=== PATIENT | male | born 1935 | race Caucasian/White ===

== ENCOUNTER 2016-08-13 09:39 | Day surgery (SDC) | payer MEDICARE, BC ==
[~2016-08-13 09:39] MED LIST: Lactated Ringers 1,000 ML IV SCH; Lidocaine 1%/Sod Bicarbonate in NS 8.4% 1 ML Syringe IV PRN; Sodium Chloride 0.9% 10 ML Syringe FLUSH PRN
--- NOTE | 2016-08-13 10:24 | PCM.PREANE ---
Preanesthetic Assessment - Physical Assessment NPO Status Date: 08/12/16 NPO Status Time: 21:00 O2 Sat by Pulse Oximetry: 98 Respiratory Rate: 20 Vital Signs: Last Vital Signs Temp 36.7 C 08/13/16 09:45 Pulse 65 08/13/16 09:45 Resp 20 08/13/16 09:45 BP 154/76 H 08/13/16 09:45 Pulse Ox 98 08/13/16 09:45 Height: 1.78 m Weight: 88.451 kg - Allergies Allergies/Adverse Reactions: Allergies Allergy/AdvReac Type Severity Reaction Status Date / Time Gadolinium-Containing Allergy Other Verified 08/12/16 14:30 Contrast Medi PreAnesthesia Questionnaire HEENT History: Reports: Impaired vision, Macular degeneration, Other (see below) Other HEENT History: has glasses, partial Cardiovascular History: Reports: High cholesterol, Hypertension Respiratory History: Reports: None Gastrointestinal History: Reports: Other (see below) Other Gastrointestinal History: dysphagia Genitourinary History: Reports: Other (see below) Other Genitourinary History: abnormal PSA 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 Musculoskeletal History: Reports: Other (see below) Other Musculoskeletal History: polymyalgia Neurological History: Reports: None Psychiatric History: Reports: None Endocrine/Metabolic History: Reports: None Hematologic History: Reports: None Immunologic History: Reports: None Oncologic (Cancer) History: Reports: Prostate Dermatologic History: Reports: None - Past Surgical History Head Surgeries/Procedures: Reports: None GI Surgical History: Reports: Appendectomy, Colonoscopy Musculoskeletal Surgical History: Reports: Other (see below) Other Musculoskeletal Surgeries/Procedures:: knee surgery, broken leg - SUBSTANCE USE Tobacco Use Within Last Twelve Months: Snuff/Dip Second Hand Smoke Exposure: No Recreational Drug Use History: No - HOME MEDS Home Medications: Home Meds Gluc HCl/Csa/Yahir Hy/Hyalur Ac [Glucosamine Chondroitin] 1 cap PO DAILY [History] Lutein/Minerals/Vit A,C & E [Ocuvite] 1 tab PO DAILY 08/12/16 [History] Metoprolol Succinate 50 mg PO DAILY 08/12/16 [History] Ranitidine HCl [Zantac] 150 mg PO DAILY 08/12/16 [History] atorvaSTATin [Lipitor] 20 mg PO DAILY 08/12/16 [History] - CURRENT (IN HOUSE) MEDS Current Meds: Current Medications Lactated Ringer's (Ringers, Lactated) 1,000 mls @ 125 mls/hr IV ASDIRECTED YESSENIA Stop: 08/13/16 23:00 Last Admin: 08/13/16 10:05 Dose: 125 mls/hr Lidocaine/Sodium Bicarbonate (Buffered Lidocaine 1% In Ns 8.4%) 0.25 ml IV ONETIME PRN PRN Reason: Prior to IV Start Stop: 08/13/16 18:00 Last Admin: 08/13/16 10:05 Dose: 0.25 ml Sodium Chloride (Saline Flush) 10 ml FLUSH ASDIRECTED PRN PRN Reason: Keep Vein Open Stop: 08/13/16 18:00 Preanesthetic Assessment - ANESTHESIA/TRANSFUSION/FAMILY HX Anesthesia/Transfusion History: No Prior Transfusion(s), Prior Anesthesia Family History of Anesthesia Reaction: No Intubation History: Unknown Type of Transfusion Reactions: Reports: Unknown Additional History: Patient did have some chest tightness for the past 6 nights. He went to the ER in [place] yesterday becasue he was told he shold have it checked out. Troponin 0.03, CKMB 1.4, lipid panel, cbc, chem 14 unremarkable, EKG showed SB 57. 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 Respiratory: Reports: cough Cardiovascular: Reports: no symptoms, blood pressure problem GI: Reports: no symptoms (GERD) - PHYSICAL ASSESSMENT O2 Sat by Pulse Oximetry: 98 RR: 20 Vital Signs: Last Vital Signs Temp 36.7 C 08/13/16 09:45 Pulse 65 08/13/16 09:45 Resp 20 08/13/16 09:45 BP 154/76 H 08/13/16 09:45 Pulse Ox 98 08/13/16 09:45 Height: 1.78 m Weight: 88.451 kg NPO Status Date: 08/12/16 NPO Status Time: 21:00 ASA Class: 2 Mental Status: Alert & Oriented x3 Airway Class: Mallampati = 1 Dentition: Reports: Dentures (upper ) Thyro-Mental Finger Breadths: 3 Mouth Opening Finger Breadths: 3 ROM/Head Extension: Full Respiratory Status: lungs clear to auscultation bilaterally Cardiovascular Status: regular rate & rhythm, normal S1, S2, no murmur, blood pressure WNL - ALLERGIES Allergies/Adverse Reactions: Allergies Allergy/AdvReac Type Severity Reaction Status Date / Time Gadolinium-Containing Allergy Other Verified 08/12/16 14:30 Contrast Medi - BLOOD Blood Available: No Product(s) Available: None - ANESTHESIA PLAN Preop Beta Daysi: Yes Beta Daysi: Metoprolol Beta-Daysi Last Dose Date: 08/12/16 Beta-Daysi Last Dose Time: 07:00 Anesthesia Type Planned: MAC - ACKNOWLEDGEMENTS Pt an Appropriate Candidate for the Planned Anesthesia: Yes Alternatives and Risks of Anesthesia Discussed w Pt/Guardian: Yes Pt/Guardian Understands and Agrees with Anesthesia Plan: Yes
[2016-08-13] MEDS ORDERED: Propofol 200 MG/20 ML SDV ONE (10:33)
[2016-08-13] MEDS ORDERED: Lidocaine 1% 4 ML ONE (10:34)
--- NOTE | 2016-08-13 11:03 | PCM.OPNOTE ---
- General Post-Op/Procedure Note Date of Surgery/Procedure: 08/13/16 Operative Procedure(s): EGD with proximal esophageal and GE junction biopsies Findings: sliding hiatal hernia about 6 cm mild duodenitits Pre Op Diagnosis: dysphagia Post-Op Diagnosis: 1. moderate size sliding hiatal hernia. 2. mild duodenitis Anesthesia Technique: MAC, Moderate sedation Primary Surgeon: Ron Smith Pathology: proximal esophageal and GE junction. Biopsies x2 using cold forceps EBL in mLs: 0 Complications: None Condition: Good Free Text/Narrative:: After adequate IV sedation and analgesia was obtained the patient was placed on his left side. Through a bite block a lubricated upper endoscope was inserted into the esophagus and advanced to the GE junction without difficulty. The scope into the stomach where air was given. There was mild inflammation of the duodenum with no romeo erosions or ulcerations. The antrum was unremarkable. The body of the stomach was grossly normal. In the retroflexed view I could see a sliding hiatal hernia. The fundus, and was normal. The GE junction was about 6 cm above the diaphragmatic crura. The pouch of the hernia was grossly normal. Random biopsies were taken of the GE junction for review. The body of the esophagus was otherwise endoscopically normal but because of his history of dysphagia I took 2 forceps biopsies of the proximal esophagus for histologic evaluation. Photographs taken for the patient and for the record. Air was removed, as I finished the procedure, which he tolerated well.
--- NOTE | 2016-08-13 11:07 | PCM48HPAN ---
Post Anesthesia Note - EVALUATION WITHIN 48HRS OF ANESTHETIC Vital Signs in Normal Range: Yes Patient Participated in Evaluation: Yes Respiratory Function Stable: Yes Airway Patent: Yes Cardiovascular Function Stable: Yes Hydration Status Stable: Yes Pain Control Satisfactory: Yes Nausea and Vomiting Control Satisfactory: Yes Mental Status Recovered: Yes
[2016-08-13 11:12] VITALS: BP 132/67
== END 2016-08-13 11:30 | disposition home or self-care (01) ==
LOC: JD.SDS 09:39
PROVIDERS: ATTEND Surgery
DX: K29.50 Unspecified chronic gastritis without bleeding (principal); K21.0 Gastro-esophageal reflux disease with esophagitis; Z88.8 Allergy status to other drugs, medicaments and biological substances; K44.9 Diaphragmatic hernia without obstruction or gangrene; K21.9 Gastro-esophageal reflux disease without esophagitis; I10 Essential (primary) hypertension; E78.5 Hyperlipidemia, unspecified; Z68.31 Body mass index [BMI] 31.0-31.9, adult; E78.00 Pure hypercholesterolemia, unspecified; Z79.899 Other long term (current) drug therapy; Z90.49 Acquired absence of other specified parts of digestive tract; Z98.890 Other specified postprocedural states
CPT/HCPCS: 43239; 88305; J7120; J2704

== ENCOUNTER 2017-01-26 14:18 | Emergency (ER) | payer MEDICARE, BC ==
[2017-01-26] MEDS ORDERED: Sodium Chloride 0.9% 10 ML Syringe FLUSH PRN (15:05)
[2017-01-26] MEDS ORDERED: Metoprolol Tartrate 5 MG in Sodium Chloride 0.9% 50 ML IV ONE ×2 (15:25→15:55)
[2017-01-26] MEDS ORDERED: Sodium Chloride 0.9% 500 ML IV ONE (15:27)
--- NOTE | 2017-01-26 15:27 | EDM.PDOC ---
ED HPI GENERAL MEDICAL PROBLEM - General Chief Complaint: Cardiovascular Problem Stated Complaint: HIGH HEART RATE Time Seen by Provider: 01/26/17 14:33 Source of Information: Reports: Patient, RN Notes Reviewed, Other (Record of prior visit has been sent from [facility] and has been reviewed) - History of Present Illness INITIAL COMMENTS - FREE TEXT/NARRATIVE: 81-year-old gentleman has been having some palpitations of his chest off and on for the past week or so. This was more intense and longer lasting this morning so he did present to the [facility]. He was noted to be in atrial fibrillation with RVR. Or for has been transferred here for further evaluation. She has felt some "pressure in his head". No chest pain or difficulty breathing. Mild dizziness when standing and walking. No nausea vomiting or diaphoresis. He does have history of hypertension. He has history of GERD and hyperlipidemia. He is not diabetic. Headache Pain Score (Numeric/FACES): 6 - Related Data Allergies Allergy/AdvReac Type Severity Reaction Status Date / Time Gadolinium-Containing Allergy Other Verified 01/26/17 15:06 Contrast Medi Home Meds: Home Meds Gluc HCl/Csa/Yahir Hy/Hyalur Ac [Glucosamine Chondroitin] 1 cap PO DAILY [History] Lutein/Minerals/Vit A,C & E [Ocuvite] 1 tab PO DAILY 08/12/16 [History] Metoprolol Succinate 50 mg PO DAILY 08/12/16 [History] Ranitidine HCl [Zantac] 150 mg PO DAILY 08/12/16 [History] atorvaSTATin [Lipitor] 20 mg PO DAILY 08/12/16 [History] Omeprazole 20 mg PO DAILY 01/26/17 [History] Past Medical History HEENT History: Reports: Impaired Vision, Macular Degeneration, Other (See Below) Other HEENT History: has glasses, partial Cardiovascular History: Reports: High Cholesterol, Hypertension Respiratory History: Reports: None Gastrointestinal History: Reports: Other (See Below) Other Gastrointestinal History: dysphagia Genitourinary History: Reports: Other (See Below) Other Genitourinary History: abnormal PSA 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 Musculoskeletal History: Reports: Other (See Below) Other Musculoskeletal History: polymyalgia Neurological History: Reports: None Psychiatric History: Reports: None Endocrine/Metabolic History: Reports: None Hematologic History: Reports: None Immunologic History: Reports: None Oncologic (Cancer) History: Reports: Prostate Dermatologic History: Reports: None - Past Surgical History Head Surgeries/Procedures: Reports: None Musculoskeletal Surgical History: Reports: Other (See Below) Social & Family History - Tobacco Use Smoking Status *Q: Current Every Day Smoker Years of Tobacco use: 40 Packs/Tins Daily: 0.2 Second Hand Smoke Exposure: No - Caffeine Use Caffeine Use: Reports: Coffee - Recreational Drug Use Recreational Drug Use: No Drug Use in Last 12 Months: No - Living Situation & Occupation Occupation: Other ED ROS GENERAL - Review of Systems Review Of Systems: See Below Constitutional: Denies: Fever, Chills, Diaphoresis HEENT: Reports: No Symptoms Respiratory: Denies: Shortness of Breath, Pleuritic Chest Pain, Cough Cardiovascular: Reports: Palpitations. Denies: Chest Pain GI/Abdominal: Denies: Abdominal Pain, Nausea, Vomiting Musculoskeletal: Denies: Shoulder Pain, Arm Pain, Leg Pain Skin: Reports: No Symptoms Neurological: Reports: No Symptoms ED EXAM, GENERAL - Physical Exam Exam: See Below General Appearance: Alert, No Apparent Distress Throat/Mouth: Normal Inspection, Normal Oropharynx Head: Atraumatic. No: Facial Swelling Neck: Supple, Full Range of Motion Respiratory/Chest: No Respiratory Distress, Lungs Clear, Normal Breath Sounds Cardiovascular: Tachycardia, Irregularly Irregular GI/Abdominal: Soft, Non-Tender Extremities: No: Pedal Edema, Leg Pain, Increased Warmth, Redness Neurological: Alert, Oriented, No Motor/Sensory Deficits Skin Exam: Warm, Dry, Normal Color EKG INTERPRETATION EKG Date: 01/26/17 Rhythm: A-Fib Rate (Beats/Min): 107 Soso: Normal QRS: Normal ST-T: Normal Course - Vital Signs Last Recorded V/S: Last Vital Signs Temp 97.8 F 01/26/17 15:03 Pulse 88 01/26/17 16:22 Resp 16 01/26/17 15:03 BP 120/83 01/26/17 16:22 Pulse Ox 96 01/26/17 15:03 - Orders/Labs/Meds Orders: Active Orders 24 hr Category Date Time Status EKG 12 Lead [EKG Documentation Completion] [RC] STAT Care 01/26/17 15:05 Active Peripheral IV Care [RC] . DIRECTED Care 01/26/17 15:06 Active Chest 1V Frontal [CR] Stat Exams 01/26/17 15:05 Taken Sodium Chloride 0.9% [Saline Flush] Med 01/26/17 15:05 Active 10 ml FLUSH ASDIRECTED PRN Peripheral IV Insertion Pediatric [OM.PC] Routine Oth 01/26/17 15:06 Ordered Medication Orders Sodium Chloride (Saline Flush) 10 ml FLUSH ASDIRECTED PRN PRN Reason: Keep Vein Open Last Admin: 01/26/17 15:42 Dose: 10 ml Labs: Laboratory Tests 01/26/17 01/26/17 01/26/17 Range/Units 15:10 15:10 15:10 WBC 8.22 (4.23-9.07) K/mm3 RBC 5.02 (4.63-6.08) M/mm3 Hgb 14.1 (13.7-17.5) gm/L Hct 42.5 (40.1-51.0) % MCV 84.7 (79.0-92.2) fl MCH 28.1 (25.7-32.2) pg MCHC 33.2 (32.2-35.5) g/dl RDW Std Deviation 41.9 (35.1-43.9) fL Plt Count 237 (163-337) K/mm3 MPV 10.5 (9.4-12.3) fl Neut % (Auto) 61.3 (34.0-67.9) % Lymph % (Auto) 20.2 L (21.8-53.1) % [place] % (Auto) 15.6 H (5.3-12.2) % Eos % (Auto) 1.8 (0.8-7.0) Baso % (Auto) 0.9 (0.1-1.2) % Neut # (Auto) 5.04 (1.78-5.38) K/mm3 Lymph # (Auto) 1.66 (1.32-3.57) K/mm3 [place] # (Auto) 1.28 H (0.30-0.82) K/mm3 Eos # (Auto) 0.15 (0.04-0.54) K/mm3 Baso # (Auto) 0.07 (0.01-0.08) K/mm3 Manual Slide Review Normal smear PT 10.7 (8.0-13.0) SECONDS INR 0.98 APTT (22-36) SECONDS Sodium 139 (136-145) mEq/L Potassium 4.1 (3.5-5.1) mEq/L Chloride 106 (98-107) mEq/L Carbon Dioxide 27 (21-32) mEq/L Anion Gap 10.1 (5-15) BUN 21 H (7-18) mg/dL Creatinine 1.0 (0.7-1.3) mg/dL Est Cr Clr Drug Dosing 57.79 mL/min Estimated GFR (MDRD) > 60 (>60) mL/min BUN/Creatinine Ratio 21.0 H (14-18) Glucose 130 H (83-115) mg/dL Calcium 9.0 (8.5-10.1) mg/dL Total Bilirubin 0.3 (0.2-1.0) mg/dL AST 14 L (15-37) U/L ALT 22 (16-63) U/L Alkaline Phosphatase 122 H (46-116) U/L Troponin I < 0.017 (0.00-0.056) ng/mL Total Protein 6.9 (6.4-8.2) g/dl Albumin 3.3 L (3.4-5.0) g/dl Globulin 3.6 gm/dL Albumin/Globulin Ratio 0.9 L (1-2) 01/26/ Range/Units 15:10 WBC (4.23-9.07) K/mm3 RBC (4.63-6.08) M/mm3 Hgb (13.7-17.5) gm/L Hct (40.1-51.0) % MCV (79.0-92.2) fl MCH (25.7-32.2) pg MCHC (32.2-35.5) g/dl RDW Std Deviation (35.1-43.9) fL Plt Count (163-337) K/mm3 MPV (9.4-12.3) fl Neut % (Auto) (34.0-67.9) % Lymph % (Auto) (21.8-53.1) % [place] % (Auto) (5.3-12.2) % Eos % (Auto) (0.8-7.0) Baso % (Auto) (0.1-1.2) % Neut # (Auto) (1.78-5.38) K/mm3 Lymph # (Auto) (1.32-3.57) K/mm3 [place] # (Auto) (0.30-0.82) K/mm3 Eos # (Auto) (0.04-0.54) K/mm3 Baso # (Auto) (0.01-0.08) K/mm3 Manual Slide Review PT (8.0-13.0) SECONDS INR APTT 31 (22-36) SECONDS Sodium (136-145) mEq/L Potassium (3.5-5.1) mEq/L Chloride (98-107) mEq/L Carbon Dioxide (21-32) mEq/L Anion Gap (5-15) BUN (7-18) mg/dL Creatinine (0.7-1.3) mg/dL Est Cr Clr Drug Dosing mL/min Estimated GFR (MDRD) (>60) mL/min BUN/Creatinine Ratio (14-18) Glucose (83-115) mg/dL Calcium (8.5-10.1) mg/dL Total Bilirubin (0.2-1.0) mg/dL AST (15-37) U/L ALT (16-63) U/L Alkaline Phosphatase (46-116) U/L Troponin I (0.00-0.056) ng/mL Total Protein (6.4-8.2) g/dl Albumin (3.4-5.0) g/dl Globulin gm/dL Albumin/Globulin Ratio (1-2) Meds: Medications Generic Name Dose Route Start Last Admin Trade Name Freq PRN Reason Stop Dose Admin Sodium Chloride 10 ml 01/26/17 15:05 01/26/17 15:42 Saline Flush FLUSH 10 ml ASDIRECTED PRN Administration Keep Vein Open Discontinued Medications Generic Name Dose Route Start Last Admin Trade Name Freq PRN Reason Stop Dose Admin Aspirin 324 mg 01/26/17 16:25 Aspirin PO 01/26/17 16:26 ONETIME ONE Sodium Chloride 500 mls @ 999 mls/hr 01/26/17 15:27 01/26/17 15:42 Normal Saline IV 01/26/17 15:57 999 mls/hr .BOLUS ONE Administration Metoprolol Tartrate 5 mg/ 55 mls @ 100 mls/hr 01/26/17 15:55 Sodium Chloride IV 01/26/17 16:27 ONETIME ONE Metoprolol Tartrate 5 mg 01/26/17 15:43 01/26/17 15:44 Lopressor IVPUSH 01/26/17 15:44 5 mg ONETIME ONE Administration Metoprolol Tartrate 50 mg 01/26/17 16:16 01/26/17 16:22 Lopressor PO 01/26/17 16:17 50 mg ONETIME ONE Administration - Re-Assessments/Exams Free Text/Narrative Re-Assessment/Exam: 01/26/17 16:25. Have given Lopressor 5 mg IV, 50 mg by mouth. Rate is currently down into the 80s and 90s. Blood pressure good at 120/83. It is not clear how long he has been in atrial fib. or if he's been going in and out. Stroke risk has been discussed with patient and family. Been started on Coumadin today they would prefer to work with aspirin for the next few days, see if he stays in atrial fib or not. Do a blood pressure machine at home. He will check blood pressure and heart rate twice daily keep a log for follow-up at the clinic. 01/26/17 16:41 chest x-ray did not show acute abnormality Departure - Departure Time of Disposition: 16:27 Disposition: Home, Self-Care 01 Condition: Fair Clinical Impression: Atrial fibrillation with RVR Instructions: Atrial Fibrillation, [id number] Referrals: Sindy Parada, MANAGER MBA [Primary Care Provider] - Forms: ED Department Discharge Additional Instructions: Increase your dose of metoprolol to 50 mg twice daily for nail. Take 2 baby aspirin every morning. Check your blood pressure and heart rate preferably twice daily and keep a log. Bring that record in for follow-up with Sindy at the clinic later this week. Follow-up with Sindy at the clinic in 2-3 days for recheck. Return to ED if symptoms worsening in any way - My Orders Last 24 Hours: My Active Orders 01/26/17 15:05 EKG 12 Lead [EKG Documentation Completion] [RC] STAT Chest 1V Frontal [CR] Stat Sodium Chloride 0.9% [Saline Flush] 10 ml FLUSH ASDIRECTED PRN 01/26/17 15:06 Peripheral IV Care [RC] . DIRECTED Peripheral IV Insertion Pediatric [OM.PC] Routine - Assessment/Plan Last 24 Hours: My Active Orders 01/26/17 15:05 EKG 12 Lead [EKG Documentation Completion] [RC] STAT Chest 1V Frontal [CR] Stat Sodium Chloride 0.9% [Saline Flush] 10 ml FLUSH ASDIRECTED PRN 01/26/17 15:06 Peripheral IV Care [RC] . DIRECTED Peripheral IV Insertion Pediatric [OM.PC] Routine
[2017-01-26] MEDS ORDERED: Metoprolol Tartrate 5 MG/5 ML SDV IVPUSH ONE (15:43)
[2017-01-26] MEDS ORDERED: Metoprolol Tartrate 50 MG Tab PO ONE (16:16)
[2017-01-26 16:22] VITALS: BP 120/83
[2017-01-26] MEDS ORDERED: Aspirin 81 MG Tab.Chew PO ONE (16:25)
--- NOTE | 2017-01-27 07:16 | CR ---
Chest: Portable view of the chest was obtained. Comparison: No previous chest x-ray. Heart size and mediastinum are within normal limits. Lungs are clear. Bony structures are grossly intact. Impression: 1. Nothing acute is identified on portable chest x-ray. Diagnostic code #1
== END 2017-01-26 16:44 | disposition home or self-care (01) ==
LOC: JD.ED 14:18
DX: I48.91 Unspecified atrial fibrillation (principal); E78.00 Pure hypercholesterolemia, unspecified; I10 Essential (primary) hypertension; F17.210 Nicotine dependence, cigarettes, uncomplicated; Z79.899 Other long term (current) drug therapy
CPT/HCPCS: 36415; 71010; 80053; 84484; 85025; 85610; 85730; 93005; 96361; 96374; 99285; A9270; J7040; J7050; 99284; J3490

== ENCOUNTER 2019-04-04 07:31 | Observation (INO) | payer MEDICARE, BC ==
[~2019-04-04 07:31] MED LIST changes: +Lidocaine 1%/Sod Bicarbonate in NS 8.4% 1 ML Syringe IDERM PRN; -Lidocaine 1%/Sod Bicarbonate in NS 8.4% 1 ML Syringe IV PRN; +Ondansetron 4 MG/2 ML SDV ONE; +Propofol 200 MG/20 ML SDV ONE; +Rocuronium 50 MG/5 ML Vial ONE; +ceFAZolin 1 GM Vial ONE; +fentaNYL 250 MCG/5 ML SDV ONE
[2019-04-04] MEDS ORDERED: ceFAZolin 2 GM in Premix Bag 1 BAG IV ONE (07:47)
--- NOTE | 2019-04-04 08:10 | PCM.PREANE ---
Preanesthetic Assessment - Procedure Proposed Procedure: lap cholecystectomy - Anesthesia/Transfusion/Family Hx Anesthesia History: Prior Anesthesia Without Reaction Family History of Anesthesia Reaction: No Transfusion History: No Prior Transfusion(s) Type of Transfusion Reactions: Reports: Unknown - Review of Systems General: No Symptoms Pulmonary: Shortness of Breath (with activity), Cough Cardiovascular: No Symptoms, Dyspnea on Exertion Gastrointestinal: No Symptoms, Abdominal Pain, Diarrhea Neurological: No Symptoms Other: Reports: Easy Bruising, Throat Pain (scratchy throat) - Physical Assessment NPO Status Date: 04/03/19 NPO Status Time: 18:00 (water with pills this am at 600) Vital Signs: 150/110 103 92-96% 20 Height: 5 ft 8 in Weight: 90.6 kg ASA Class: 3 Mental Status: Alert & Oriented x3 Airway Class: Mallampati = 2 Dentition: Reports: Dentures (upper and lower) Thyro-Mental Finger Breadths: 3 Mouth Opening Finger Breadths: 3 ROM/Head Extension: Full Lungs: Clear to Auscultation, Normal Respiratory Effort Cardiovascular: Irregular Rhythm - Allergies Allergies/Adverse Reactions: Allergies Allergy/AdvReac Type Severity Reaction Status Date / Time No Known Allergies Allergy Verified 04/01/19 14:59 - Blood Blood Available: Yes - Anesthesia Plan Beta Daysi: Metoprolol Med Last Dose Date: 04/04/19 Med Last Dose Time: 06:00 - Acknowledgements Anesthesia Type Planned: General Anesthesia Pt an Appropriate Candidate for the Planned Anesthesia: Yes Alternatives and Risks of Anesthesia Discussed w Pt/Guardian: Yes Pt/Guardian Understands and Agrees with Anesthesia Plan: Yes PreAnesthesia Questionnaire HEENT History: Reports: Macular Degeneration Other HEENT History: has glasses, partial Cardiovascular History: Reports: Afib, High Cholesterol, Hypertension Respiratory History: Reports: None Gastrointestinal History: Reports: GERD, Hiatal Hernia Other Gastrointestinal History: dysphagia Genitourinary History: Reports: Urinary Incontinence Other Genitourinary History: abnormal PSA 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 Musculoskeletal History: Reports: Back Pain, Chronic, Other (See Below) Other Musculoskeletal History: polymyalgia Neurological History: Reports: None Psychiatric History: Reports: None Endocrine/Metabolic History: Reports: None Hematologic History: Reports: None Immunologic History: Reports: None Oncologic (Cancer) History: Reports: Prostate Dermatologic History: Reports: None - Past Surgical History Head Surgeries/Procedures: Reports: None HEENT Surgical History: Reports: Other (See Below) Cardiovascular Surgical History: Reports: None Respiratory Surgical History: Reports: None GI Surgical History: Reports: Appendectomy, Colonoscopy Endocrine Surgical History: Reports: None Neurological Surgical History: Reports: None Musculoskeletal Surgical History: Reports: Other (See Below) Other Musculoskeletal Surgeries/Procedures:: knee surgery, broken leg Oncologic Surgical History: Reports: None - SUBSTANCE USE Smoking Status *Q: Former Smoker Second Hand Smoke Exposure: No Days Per Week of Alcohol Use: 0 Recreational Drug Use History: No - HOME MEDS Home Medications: Home Meds Metoprolol Succinate 50 mg PO DAILY 08/12/16 [History] Omeprazole 20 mg PO DAILY 01/26/17 [History] Warfarin Sodium [Coumadin] 5 mg PO ASDIRECTED 03/27/19 [History] atorvaSTATin [Lipitor] 20 mg PO DAILY 04/01/19 [History] predniSONE [Prednisone] 5 mg PO DAILY 04/01/19 [History] - CURRENT (IN HOUSE) MEDS Current Meds: Current Medications Lactated Ringer's (Ringers, Lactated) 1,000 mls @ 125 mls/hr IV ASDIRECTED YESSENIA Stop: 04/04/19 23:00 Cefazolin Sodium/Dextrose 2 gm (/ Premix) 50 mls @ 100 mls/hr IV ONETIME ONE Stop: 04/04/19 08:16 Lidocaine/Sodium Bicarbonate (Buffered Lidocaine 1% In Ns 8.4%) 0.25 ml IDERM ONETIME PRN PRN Reason: Prior to IV Start Stop: 04/04/19 23:00 Sodium Chloride (Saline Flush) 10 ml FLUSH ASDIRECTED PRN PRN Reason: Keep Vein Open Stop: 04/04/19 23:00 Discontinued Medications Cefazolin Sodium (Ancef) Confirm Administered Dose 2 gm .ROUTE .STK-MED ONE Stop: 04/04/19 07:10 Fentanyl (Sublimaze) Confirm Administered Dose 250 mcg .ROUTE .STK-MED ONE Stop: 04/04/19 07:10 Ondansetron HCl (Zofran) Confirm Administered Dose 4 mg .ROUTE .STK-MED ONE Stop: 04/04/19 07:10 Propofol (Diprivan 20 Ml) Confirm Administered Dose 200 mg .ROUTE .STK-MED ONE Stop: 04/04/19 07:10 Rocuronium [place] (Zemuron) Confirm Administered Dose 50 mg .ROUTE .[facility] ONE Stop: 04/04/19 07:10
[2019-04-04] MEDS ORDERED: Lidocaine 1% 50 ML MDV ONE (08:22)
[2019-04-04] MEDS ORDERED: Iopamidol 612 MG/ML 50 ML SDV ONE (09:37)
[2019-04-04] MEDS ORDERED: Sodium Chloride 0.9% 50 ML SDV ONE ×3 (09:38→10:45)
[2019-04-04] MEDS ORDERED: Albuterol 6.7 GM Inhaler INH ONE (09:53)
[2019-04-04] MEDS ORDERED: hydrALAZINE 20 MG/ML SDV ONE (09:54)
[2019-04-04] MEDS ORDERED: Lactated Ringers 1,000 ML ONE (09:54)
[2019-04-04] MEDS ORDERED: Glucagon,Human Recombinant 1 MG Vial ONE (10:44)
[2019-04-04] MEDS ORDERED: fentaNYL 100 MCG/2 ML SDV ONE (10:49)
[2019-04-04] MEDS ORDERED: Phenylephrine/Normal Saline 100 MCG/ML 10 ML Syringe ONE ×2 (10:59→11:03)
[2019-04-04] MEDS ORDERED: Neostigmine Methylsulfate 1 MG/ML 5 ML Syringe ONE (10:59)
--- NOTE | 2019-04-04 11:42 | CR ---
Operative cholangiogram: Multiple fluoroscopic spot views were obtained during operative cholangiogram study. Persistent filling defect is seen within the distal CBD suspicious for retained stone. CBD and CHD are mildly dilated. No other filling defects are seen. Impression: 1. Mildly dilated CHD and CBD. 2. Small persistent filling defect within the distal CBD compatible with retained stone. Diagnostic code #3
[2019-04-04] MEDS ORDERED: ePHEDrine 50 MG/ML SDV IVPUSH PRN (12:07)
[2019-04-04] MEDS ORDERED: fentaNYL 100 MCG/2 ML SDV IVPUSH PRN (12:07)
--- NOTE | 2019-04-04 12:07 | PCM.POSTAN ---
POST ANESTHESIA ASSESSMENT - MENTAL STATUS Mental Status: Alert, Oriented - VITAL SIGNS Vital Signs: Last Vital Signs Temp 36.7 C 04/04/19 08:00 Pulse 83 04/04/19 08:55 Resp 20 04/04/19 08:00 BP 137/97 H 04/04/19 08:55 Pulse Ox 95 04/04/19 08:55 - RESPIRATORY Respiratory Status: Respiratory Rate WNL, Airway Patent, O2 Saturation Stable, Supplemental Oxygen - CARDIOVASCULAR CV Status: Pulse Rate WNL, Blood Pressure Stable - GASTROINTESTINAL GI Status: No Symptoms - PAIN Pain Score: 0 - POST OP HYDRATION Hydration Status: Adequate & Stable
[2019-04-04] MEDS ORDERED: Acetaminophen/HYDROcodone 325-5 MG Tab PO PRN (12:39)
[2019-04-04] MEDS ORDERED: Ondansetron 4 MG/2 ML SDV IVPUSH PRN (12:39)
[2019-04-04] MEDS ORDERED: Docusate Sodium 100 MG Cap PO PRN (12:39)
--- NOTE | 2019-04-04 14:08 | OR ---
DATE OF OPERATION: 04/04/2019 SURGEON: Eusebio Monae MD PREOPERATIVE DIAGNOSIS: Biliary colic. POSTOPERATIVE DIAGNOSIS: 1. Signs of chronic cholecystitis. 2. Choledocholithiasis. 3. Cholelithiasis. OPERATION PERFORMED: 1. Laparoscopic cholecystectomy with intraoperative cholangiogram. 2. Interpretation of cholangiogram images. ANESTHESIA: Monitored anesthesia care. ESTIMATED BLOOD LOSS: 25 mL. FLUIDS: 1500. FINDINGS: 1. Adhesive disease. 2. Choledocholithiasis. 3. Cholelithiasis. INDICATION AND CONSENT: The patient is an 83-year-old male who was having right upper quadrant pain associated with food for 2 months. The patient presented to my clinic for evaluation and I evaluated the patient and reviewed the labs and found that the LFTs were elevated with T-bili of 3.5 a few days ago. These labs were down to T - bili of 1.4 and transaminitis was improving a week later. I recommended the patient undergoes laparoscopic cholecystectomy with intraoperative cholangiogram to assess choledocholithiasis, and the patient agreed to proceed to the procedure. The patient was anticoagulated with warfarin due to atrial fibrillation. Therefore, the patient was told not to take warfarin for 5 days and the procedure was scheduled. The patient presented today to the hospital to undergo the procedure. INR was 1.04, and we proceeded with the procedure. DESCRIPTION OF PROCEDURE: The patient was taken to the operating room, placed on operating room table in a supine position. Following induction of general endotracheal anesthesia, the right arm was tacked. SCDs were placed. The patient was padded and abdominal hair was clipped. Then, the abdomen was prepped and draped in the usual sterile fashion. Formal time-out was performed prior to the start of the procedure. I began the procedure by placing a Veress needle in the left upper quadrant. The abdomen was insufflated to 15 mmHg. Then, because the patient had prior abdominal surgeries as indicated by scar in the infraumbilical position in the right lower quadrant, we began by placing a 5 mm Optiview trocar in the right subcostal region. Upon placing this trocar, there were no immediate injuries. We inspected the abdomen. There were just adhesions to the abdomen in the right side as well as in the periumbilical area. Another 5 mm trocar was placed in the right lateral subcostal, and a blunt grasper was used to take down adhesions around the umbilicus as well as in the right side of the abdomen. This took about half an hour for lysis of adhesions. Eventually, we cleared the space enough to be able to view the umbilicus, and a 10 mm trocar was placed in the umbilical area. At this point, we placed additional 5 mm trocar in the subxiphoid, and we were ready to begin our dissection. We tried to lift up the gallbladder. There were dense adhesions of the omentum around the gallbladder indicating prior inflammatory episodes. These adhesions to the gallbladder were taken out bluntly with a grasper. Eventually, the gallbladder was freed and it was grasped and elevated cephalad, and the infundibulum was dissected. There was edema around this area. However, we were able to dissect the cystic duct, skeletonize it, as well as the cystic artery. Once this was done, critical view of safety was achieved. Clips were placed around the cystic arteries, and the cystic artery was divided such that 2 clips remained in situ. Then, cystic ductotomy was made. A 14-gauge cholangiocatheter was passed through the right subcostal area into the cystic duct and secured with a clip. Then, a cholangiogram was performed. Upon performing cholangiogram, we noted that there was a clear defect in the distal common bile duct, not allowing much of the contrast to pass through. Therefore, 1 mg of glucagon was administered to dilate the sphincter of Oddi. Then, pressurized saline was injected with a syringe to aid in flushing the stones out. Once this was done, we repeated cholangiogram with contrast. At this point, there was passage of contrast immediately into the small bowel. However, there was a small filling defect still in the distal common bile duct. Because this was a partial blockage and the defect was very small with easy passage of contrast into the duodenum as well as retrograde contrast into the rest of the biliary tree was clear, we decided to proceed with a cholecystectomy since most of the stones will eventually pass on their own. Then, the catheter was removed and the gallbladder was removed from the gallbladder fossa with hook cautery and placed into the EndoCatch bag. During maneuvering of the gallbladder, the gallbladder was torn open with spillage of dense bile into the abdomen and some stones also spilled into the abdomen. Therefore, the abdomen was irrigated. We found multiple stones above the liver. These were scooped and placed into the EndoCatch bag with a grasper. All stones that were visible were scooped. No stones were left remaining in the abdomen. Then, the abdomen was irrigated with 2 L of normal saline until the irrigant drained clear. At this point, we inspected the dissection area, and there was no bleeding that was found. The area was ensured to be hemostatic. Then, the gallbladder was removed through the umbilical incision and once again, we re-inspected the abdomen. There were no injuries and there was no bleeding. At this point, we proceeded with closure of the umbilical incision. This was closed with 0 Vicryl stitches using Watson- Zeb device. Once this was done, the rest of the trocars were removed under direct visualization without any bleeding. The abdomen was desufflated, and the skin at all incision sites were closed with 4-0 Monocryl in an interrupted fashion. The patient tolerated the procedure well and at the end of the procedure, all instruments, sharps, and sponges were accounted for to be correct x2. The patient was extubated and taken to the PACU for further recovery. The plan is for the patient to stay overnight to be monitored for his atrial fibrillation as well as LFTs in the morning. If the LFTs are improving and the patient's pain is controlled and tolerating diet, the patient will be discharged home. Majority of the partially blocking small stone in the distal common bile duct usually pass. If the patient's LFTs are doing well, the patient to go home and come back to see me in 2 weeks with another set of LFTs for further evaluation. CASSIE /[id number]
[2019-04-04] MEDS: Acetaminophen 325 MG Tab PO PRN (20:37)
[2019-04-05] MEDS: Acetaminophen 325 MG Tab PO PRN ×4 (04:05→23:45)
--- NOTE | 2019-04-05 07:50 | PCM.SURGPN ---
- General Info Date of Service: 04/05/19 POD#: 1 Post-Op Diagnosis: Lap cholecystectomy Functional Status: Reports: Pain Controlled, Tolerating Diet, Ambulating - Review of Systems General: Reports: No Symptoms HEENT: Reports: No Symptoms Pulmonary: Reports: No Symptoms Cardiovascular: Reports: No Symptoms Gastrointestinal: Reports: Abdominal Pain Genitourinary: Reports: No Symptoms Musculoskeletal: Reports: No Symptoms Skin: Reports: No Symptoms Neurological: Reports: No Symptoms Psychiatric: Reports: No Symptoms - Patient Data Vitals - Most Recent: Last Vital Signs Temp 98.2 F 04/05/19 04:59 Pulse 77 04/05/19 05:03 Resp 18 04/05/19 04:59 BP 132/94 H 04/05/19 04:59 Pulse Ox 92 L 04/05/19 05:00 Weight - Most Recent: 92.125 kg I&O - Last 24 Hours: Intake & Output 04/04/19 04/05/19 04/05/19 22:59 06:59 14:59 Intake Total 180 400 Output Total 2 Balance 180 398 Lab Results Last 24 Hrs: Laboratory Results - last 24 hr 04/04/19 04/04/19 04/05/19 Range/Units 08:28 08:28 04:08 PT 11.4 (9.7-12.0) SECONDS INR 1.05 Sodium 135 L (136-145) mEq/L Potassium 4.1 (3.5-5.1) mEq/L Chloride 101 (98-107) mEq/L Carbon Dioxide 24 (21-32) mEq/L Anion Gap 14.1 (5-15) BUN 20 H (7-18) mg/dL Creatinine 1.0 (0.7-1.3) mg/dL Est Cr Clr Drug Dosing 52.25 mL/min Estimated GFR (MDRD) > 60 (>60) mL/min BUN/Creatinine Ratio 20.0 H (14-18) Glucose 127 H (83-115) mg/dL Calcium 8.7 (8.5-10.1) mg/dL Total Bilirubin 4.7 H (0.2-1.0) mg/dL Direct Bilirubin 3.50 H (0.0-0.2) mg/dl Indirect Bilirubin 1.20 AST 518 H (15-37) U/L ALT 559 H (16-63) U/L Alkaline Phosphatase 321 H (46-116) U/L Total Protein 6.1 L (6.4-8.2) g/dl Albumin 3.1 L (3.4-5.0) g/dl Globulin 3.0 gm/dL Albumin/Globulin Ratio 1.0 (1-2) Blood Type O POSITIVE Gel Antibody Screen Negative Med Orders - Current: Current Medications Acetaminophen (Tylenol) 650 mg PO Q6H PRN PRN Reason: Pain (mild 1-3) Last Admin: 04/05/19 04:05 Dose: 650 mg Hydrocodone Bitart/Acetaminophen ([place] 325-5 Mg) 1 tab PO Q4H PRN PRN Reason: Pain (moderate 4-6) Last Admin: 04/04/19 14:19 Dose: 1 tab Docusate Sodium (Colace) 100 mg PO BID PRN PRN Reason: Constipation Enoxaparin Sodium (Lovenox) 40 mg SUBCUT DAILY YESSENIA Ondansetron HCl (Zofran) 4 mg IVPUSH Q6H PRN PRN Reason: Nausea/Vomiting Discontinued Medications Albuterol (Proventil Hfa) Confirm Administered Dose 6.7 gm INH .STK-MED ONE Stop: 04/04/19 09:54 Cefazolin Sodium (Ancef) Confirm Administered Dose 2 gm .ROUTE .STK-MED ONE Stop: 04/04/19 07:10 Ephedrine Sulfate (Ephedrine Sulfate) 5 mg IVPUSH ASDIRECTED PRN PRN Reason: Hypotension Stop: 04/04/19 18:00 Fentanyl (Sublimaze) Confirm Administered Dose 250 mcg .ROUTE .STK-MED ONE Stop: 04/04/19 07:10 Fentanyl (Sublimaze) Confirm Administered Dose 100 mcg .ROUTE .STK-MED ONE Stop: 04/04/19 10:50 Fentanyl (Sublimaze) 50 mcg IVPUSH Q5M PRN PRN Reason: pain Stop: 04/04/19 18:00 Last Admin: 04/04/19 12:50 Dose: 50 mcg Glucagon (Glucagen) Confirm Administered Dose 1 mg .ROUTE .STK-MED ONE Stop: 04/04/19 10:45 Glycopyrrolate () Confirm Administered Dose 1 mg .ROUTE .STK-MED ONE Stop: 04/04/19 11:00 Hydralazine HCl (Apresoline) Confirm Administered Dose 20 mg .ROUTE .STK-MED ONE Stop: 04/04/19 09:55 Lactated Ringer's (Ringers, Lactated) 1,000 mls @ 50 mls/hr IV ASDIRECTED YESSENIA Stop: 04/04/19 23:00 Last Admin: 04/04/19 08:20 Dose: 125 mls/hr Cefazolin Sodium/Dextrose 2 gm (/ Premix) 50 mls @ 100 mls/hr IV ONETIME ONE Stop: 04/04/19 08:16 Last Admin: 04/04/19 11:57 Dose: Not Given Lactated Ringer's (Ringers, Lactated) Confirm Administered Dose 1,000 mls @ as directed .ROUTE .STK-MED ONE Stop: 04/04/19 09:55 Iopamidol (Isovue-300 (61%)) Confirm Administered Dose 50 ml .ROUTE .STK-MED ONE Stop: 04/04/19 09:38 Lidocaine HCl (Xylocaine 1%) Confirm Administered Dose 50 ml .ROUTE .STK-MED ONE Stop: 04/04/19 08:23 Lidocaine/Sodium Bicarbonate (Buffered Lidocaine 1% In Ns 8.4%) 0.25 ml IDERM ONETIME PRN PRN Reason: Prior to IV Start Stop: 04/04/19 23:00 Last Admin: 04/04/19 08:20 Dose: 0.25 ml Neostigmine Methylsulfate (Neostigmine) Confirm Administered Dose 5 mg .ROUTE .STK-MED ONE Stop: 04/04/19 11:00 Ondansetron HCl (Zofran) Confirm Administered Dose 4 mg .ROUTE .STK-MED ONE Stop: 04/04/19 07:10 Phenylephrine HCl (Phenylephrine In Ns 100 Mcg/Ml) Confirm Administered Dose 1 mg .ROUTE .STK-MED ONE Stop: 04/04/19 11:00 Phenylephrine HCl (Phenylephrine In Ns 100 Mcg/Ml) Confirm Administered Dose 1 mg .ROUTE .STK-MED ONE Stop: 04/04/19 11:04 Propofol (Diprivan 20 Ml) Confirm Administered Dose 200 mg .ROUTE .STK-MED ONE Stop: 04/04/19 07:10 Rocuronium [place] (Zemuron) Confirm Administered Dose 50 mg .ROUTE .STK-MED ONE Stop: 04/04/19 07:10 Sodium Chloride (Saline Flush) 10 ml FLUSH ASDIRECTED PRN PRN Reason: Keep Vein Open Stop: 04/04/19 23:00 Sodium Chloride (Normal Saline) Confirm Administered Dose 50 ml .ROUTE .STK-MED ONE Stop: 04/04/19 09:39 Sodium Chloride (Normal Saline) Confirm Administered Dose 50 ml .ROUTE .STK-MED ONE Stop: 04/04/19 10:27 Sodium Chloride (Normal Saline) Confirm Administered Dose 50 ml .ROUTE .STK-MED ONE Stop: 04/04/19 10:46 - Exam Wound/Incisions: Healing Well General: Alert, Oriented, Cooperative, No Acute Distress GI/Abdominal Exam: Soft, No Organomegaly, No Distention, Tender (appropriately around the incisions) - Problem List Review Problem List Initiated/Reviewed/Updated: No - My Orders Last 24 Hours: Active Orders 24 hr Category Date Time Status Patient Status [ADT] Routine ADT 04/04/19 12:32 Active Ambulate [RC] .TID Care 04/04/19 12:37 Active Antiembolic Devices [RC] BID Care 04/04/19 12:40 Active Cooling Warming Measures [RC] ASDIRECTED Care 04/04/19 12:07 Active Head of Bed Elevation [RC] ASDIRECTED Care 04/04/19 12:37 Active May Shower [RC] ASDIRECTED Care 04/04/19 12:32 Active Notify Provider [RC] ASDIRECTED Care 04/04/19 12:07 Active Oxygen Therapy [RC] PRN Care 04/04/19 12:32 Active Pulse Oximetry [RC] ASDIRECTED Care 04/04/19 12:07 Active RT Incentive Spirometry [RC] Q1HWA Care 04/04/19 12:32 Active Ready for Discharge [RC] PER UNIT ROUTINE Care 04/04/19 12:00 Active Up With Assistance [RC] ASDIRECTED Care 04/04/19 12:32 Active Up to Chair [RC] .TID Care 04/04/19 12:37 Active VTE/DVT Education [RC] BID Care 04/04/19 12:40 Active Vital Signs [RC] 00,04,08,12,16,20 Care 04/04/19 12:32 Active Regular Diet [DIET] Diet 04/04/19 Dinner Active HEPATIC FUNCTION PANEL,HFP [CHEM] Timed Lab 04/05/19 14:00 Ordered Acetaminophen [Tylenol] Med 04/04/19 12:39 Active 650 mg PO Q6H PRN Acetaminophen/HYDROcodone [[place] 325-5 MG] Med 04/04/19 12:39 Active 1 tab PO Q4H PRN Docusate Sodium [Colace] Med 04/04/19 12:39 Active 100 mg PO BID PRN Enoxaparin [Lovenox] Med 04/05/19 09:00 Active 40 mg SUBCUT DAILY Ondansetron [Zofran] Med 04/04/19 12:39 Active 4 mg IVPUSH Q6H PRN Abdominal Binder [OM.PC] Per Unit Routine Oth 04/04/19 12:37 Ordered DVT/VTE Prophylaxis Reflex [OM.PC] Routine Oth 04/04/19 12:39 Ordered Resuscitation Status Routine Resus Stat 04/04/19 07:47 Ordered Medication Orders Acetaminophen (Tylenol) 650 mg PO Q6H PRN PRN Reason: Pain (mild 1-3) Last Admin: 04/05/19 04:05 Dose: 650 mg Admin: 04/04/19 20:37 Dose: 650 mg Hydrocodone Bitart/Acetaminophen ([place] 325-5 Mg) 1 tab PO Q4H PRN PRN Reason: Pain (moderate 4-6) Last Admin: 04/04/19 14:19 Dose: 1 tab Docusate Sodium (Colace) 100 mg PO BID PRN PRN Reason: Constipation Enoxaparin Sodium (Lovenox) 40 mg SUBCUT DAILY YESSENIA Ondansetron HCl (Zofran) 4 mg IVPUSH Q6H PRN PRN Reason: Nausea/Vomiting - Plan Plan (Free Text/Narrative):: POD1 lap mayuri. Found to have partially blocking CBD stone. -Will check LFTs this afternoon, if continuing to rise, then he might have blocking CBD in which case referral to GI for ERCP is warranted. If stable or improving, then we will check again in the AM to make sure they continue to improve before discharge. - Patient can continue reg diet, dc IVF.
--- NOTE | 2019-04-05 08:16 | PCM48HPAN ---
Post Anesthesia Note - EVALUATION WITHIN 48HRS OF ANESTHETIC Vital Signs in Normal Range: Yes Patient Participated in Evaluation: Yes Respiratory Function Stable: Yes Airway Patent: Yes Cardiovascular Function Stable: Yes Hydration Status Stable: Yes Pain Control Satisfactory: Yes Nausea and Vomiting Control Satisfactory: Yes Mental Status Recovered: Yes Vital Signs: Last Vital Signs Temp 36.8 C 04/05/19 04:59 Pulse 77 04/05/19 05:03 Resp 18 04/05/19 04:59 BP 132/94 H 04/05/19 04:59 Pulse Ox 92 L 04/05/19 05:00 - COMMENTS/OBSERVATIONS Free Text/Narrative:: no anesthesia complications noted
[2019-04-05] MEDS: Enoxaparin 40 MG/0.4 ML Syringe SUBCUT SCH (09:01)
--- NOTE | 2019-04-05 15:27 | PCM.SN ---
- Free Text/Narrative Note: I reviewed the LFTs. They are improving. We will repeat labs in the morning. If they continue to improve, then, we will discharge the patient to home.
[2019-04-06] MEDS: Acetaminophen 325 MG Tab PO PRN (05:55)
--- NOTE | 2019-04-06 07:39 | PCM.DCSUM1 ---
Discharge Summary - Hospital Course Free Text/Narrative:: Patient underwent laparoscopic cholecystectomy 04/04/2019. He was found to have choledocholithiasis which was partially evacuated. He stayed to monitor his Afib and LFts. His Afib continue to be rate controlled. However, his LFTs were elevated on POD1, these trended down on POD2. Patient pain was controlled and he was tolerating diet. He was discharged on POD2 with outpatient PT. Diagnosis: Stroke: No - Discharge Data Discharge Date: 04/06/19 Discharge Disposition: Home, Self-Care 01 Condition: Good - Referral to Home Health Primary Care Physician: Jason Peters MD - Patient Summary/Data Operative Procedure(s) Performed: Laparoscopic cholecystectomy Consults: Consultations 04/05/19 13:33 Consult to Physical Therapy [PT Evaluation and Treatment] [CONS] Routine Hospital Course: Patient underwent laparoscopic cholecystectomy 04/04/2019. He was found to have choledocholithiasis which was partially evacuated. He stayed to monitor his Afib and LFts. His Afib continue to be rate controlled. However, his LFTs were elevated on POD1, these trended down on POD2. Patient pain was controlled and he was tolerating diet. He was discharged on POD2 with outpatient PT. - Patient Instructions Diet: Heart Healthy Diet Activity: As Tolerated, No Lifting Over 20 Pounds (for 4 weeks) Driving: Do Not Drive (until 24 hours post anesthesia and when not taking opioid pain medications.) Showering/Bathing: May Shower Wound/Incision Care: Keep Operative Site/Wound Site Clean and Dry, Do NOT Change Dressing Notify Provider of: Fever, Increased Pain, Swelling and Redness, Drainage, Nausea and/or Vomiting Other/Special Instructions: You may start taking warfarin the night of surgery. Take Ibuprofen for pain. If the pain becomes severe, take the prescribed opioid pain medication. Take colace or other stool softener to avoid constipation. - Discharge Plan *PRESCRIPTION DRUG MONITORING PROGRAM REVIEWED*: No *COPY OF PRESCRIPTION DRUG MONITORING REPORT IN PATIENT CHAR: No Prescriptions/Med Rec: Docusate Sodium [Colace] 100 mg PO Q12HR 15 Days #30 capsule traMADol [Ultram] 50 mg PO Q4H PRN 3 Days #12 tab PRN Reason: Abdominal Pain Home Medications: Home Meds Metoprolol Succinate 50 mg PO DAILY 08/12/16 [History] Omeprazole 20 mg PO DAILY 01/26/17 [History] Warfarin Sodium [Coumadin] 5 mg PO ASDIRECTED 03/27/19 [History] atorvaSTATin [Lipitor] 20 mg PO DAILY 04/01/19 [History] predniSONE [Prednisone] 5 mg PO DAILY 04/01/19 [History] Docusate Sodium [Colace] 100 mg PO Q12HR 15 Days #30 capsule 04/04/19 [Rx] Vit A/C/E AC/Znox/Cupric Oxide [Eye Vitamin-Minerals Tablet] 1 tab PO DAILY [History] traMADol [Ultram] 50 mg PO Q4H PRN 3 Days #12 tab 04/04/19 [Rx] Oxygen Therapy Mode: Room Air Referrals: Eusebio Monae MD [Physician] - (2 weeks with LFTs) - Discharge Summary/Plan Comment DC Time >30 min.: Yes - General Info Date of Service: 04/06/19 Admission Dx/Problem (Free Text: Biliary colic Functional Status: Reports: Pain Controlled, Tolerating Diet, Ambulating, Urinating - Review of Systems General: Reports: No Symptoms HEENT: Reports: No Symptoms Pulmonary: Reports: No Symptoms Cardiovascular: Reports: No Symptoms Gastrointestinal: Reports: Abdominal Pain Genitourinary: Reports: No Symptoms Musculoskeletal: Reports: No Symptoms Skin: Reports: No Symptoms Neurological: Reports: No Symptoms Psychiatric: Reports: No Symptoms - Patient Data Vitals - Most Recent: Last Vital Signs Temp 97.7 F 04/05/19 23:33 Pulse 99 04/06/19 03:56 Resp 16 04/05/19 23:33 BP 148/84 H 04/06/19 03:56 Pulse Ox 94 L 04/06/19 03:56 Weight - Most Recent: 92.079 kg Lab Results - Last 24 hrs: Laboratory Results - last 24 hr 04/05/19 04/05/19 04/06/19 Range/Units 04:08 14:06 05:40 Total Bilirubin 3.4 H 2.5 H (0.2-1.0) mg/dL Direct Bilirubin 3.50 H 2.60 H 1.50 H (0.0-0.2) mg/dl Indirect Bilirubin 1.20 0.80 1.00 AST 393 H 239 H (15-37) U/L ALT 540 H 427 H (16-63) U/L Alkaline Phosphatase 337 H 319 H (46-116) U/L Total Protein 6.6 6.5 (6.4-8.2) g/dl Albumin 3.2 L 3.1 L (3.4-5.0) g/dl Globulin 3.4 3.4 gm/dL Albumin/Globulin Ratio 0.9 L 0.9 L (1-2) Med Orders - Current: Current Medications Acetaminophen (Tylenol) 650 mg PO Q6H PRN PRN Reason: Pain (mild 1-3) Last Admin: 04/06/19 05:55 Dose: 650 mg Hydrocodone Bitart/Acetaminophen ([place] 325-5 Mg) 1 tab PO Q4H PRN PRN Reason: Pain (moderate 4-6) Last Admin: 04/04/19 14:19 Dose: 1 tab Docusate Sodium (Colace) 100 mg PO BID PRN PRN Reason: Constipation Enoxaparin Sodium (Lovenox) 40 mg SUBCUT DAILY YESSENIA Last Admin: 04/05/19 09:01 Dose: 40 mg Ondansetron HCl (Zofran) 4 mg IVPUSH Q6H PRN PRN Reason: Nausea/Vomiting Discontinued Medications Albuterol (Proventil Hfa) Confirm Administered Dose 6.7 gm INH .STK-MED ONE Stop: 04/04/19 09:54 Cefazolin Sodium (Ancef) Confirm Administered Dose 2 gm .ROUTE .STK-MED ONE Stop: 04/04/19 07:10 Ephedrine Sulfate (Ephedrine Sulfate) 5 mg IVPUSH ASDIRECTED PRN PRN Reason: Hypotension Stop: 04/04/19 18:00 Fentanyl (Sublimaze) Confirm Administered Dose 250 mcg .ROUTE .STK-MED ONE Stop: 04/04/19 07:10 Fentanyl (Sublimaze) Confirm Administered Dose 100 mcg .ROUTE .STK-MED ONE Stop: 04/04/19 10:50 Fentanyl (Sublimaze) 50 mcg IVPUSH Q5M PRN PRN Reason: pain Stop: 04/04/19 18:00 Last Admin: 04/04/19 12:50 Dose: 50 mcg Glucagon (Glucagen) Confirm Administered Dose 1 mg .ROUTE .STK-MED ONE Stop: 04/04/19 10:45 Glycopyrrolate () Confirm Administered Dose 1 mg .ROUTE .STK-MED ONE Stop: 04/04/19 11:00 Hydralazine HCl (Apresoline) Confirm Administered Dose 20 mg .ROUTE .STK-MED ONE Stop: 04/04/19 09:55 Lactated Ringer's (Ringers, Lactated) 1,000 mls @ 50 mls/hr IV ASDIRECTED YESSENIA Stop: 04/04/19 23:00 Last Admin: 04/04/19 08:20 Dose: 125 mls/hr Cefazolin Sodium/Dextrose 2 gm (/ Premix) 50 mls @ 100 mls/hr IV ONETIME ONE Stop: 04/04/19 08:16 Last Admin: 04/04/19 11:57 Dose: Not Given Lactated Ringer's (Ringers, Lactated) Confirm Administered Dose 1,000 mls @ as directed .ROUTE .STK-MED ONE Stop: 04/04/19 09:55 Iopamidol (Isovue-300 (61%)) Confirm Administered Dose 50 ml .ROUTE .STK-MED ONE Stop: 04/04/19 09:38 Lidocaine HCl (Xylocaine 1%) Confirm Administered Dose 50 ml .ROUTE .STK-MED ONE Stop: 04/04/19 08:23 Lidocaine/Sodium Bicarbonate (Buffered Lidocaine 1% In Ns 8.4%) 0.25 ml IDERM ONETIME PRN PRN Reason: Prior to IV Start Stop: 04/04/19 23:00 Last Admin: 04/04/19 08:20 Dose: 0.25 ml Neostigmine Methylsulfate (Neostigmine) Confirm Administered Dose 5 mg .ROUTE .STK-MED ONE Stop: 04/04/19 11:00 Ondansetron HCl (Zofran) Confirm Administered Dose 4 mg .ROUTE .STK-MED ONE Stop: 04/04/19 07:10 Phenylephrine HCl (Phenylephrine In Ns 100 Mcg/Ml) Confirm Administered Dose 1 mg .ROUTE .STK-MED ONE Stop: 04/04/19 11:00 Phenylephrine HCl (Phenylephrine In Ns 100 Mcg/Ml) Confirm Administered Dose 1 mg .ROUTE .STK-MED ONE Stop: 04/04/19 11:04 Propofol (Diprivan 20 Ml) Confirm Administered Dose 200 mg .ROUTE .STK-MED ONE Stop: 04/04/19 07:10 Rocuronium [place] (Zemuron) Confirm Administered Dose 50 mg .ROUTE .STK-MED ONE Stop: 04/04/19 07:10 Sodium Chloride (Saline Flush) 10 ml FLUSH ASDIRECTED PRN PRN Reason: Keep Vein Open Stop: 04/04/19 23:00 Sodium Chloride (Normal Saline) Confirm Administered Dose 50 ml .ROUTE .STK-MED ONE Stop: 04/04/19 09:39 Sodium Chloride (Normal Saline) Confirm Administered Dose 50 ml .ROUTE .STK-MED ONE Stop: 04/04/19 10:27 Sodium Chloride (Normal Saline) Confirm Administered Dose 50 ml .ROUTE .STK-MED ONE Stop: 04/04/19 10:46 - Exam General: Reports: Alert, Oriented, Cooperative, Mild Distress GI/Abdominal Exam: Soft, No Distention, No Mass, Tender (around the incisions)
[2019-04-06 08:30] VITALS: PULSE 126
[2019-04-06 08:31] VITALS: BP 162/95
[2019-04-06] MEDS ORDERED: Metoprolol Succinate 50 MG Tab.ER PO SCH (09:00)
[2019-04-06] MEDS: Enoxaparin 40 MG/0.4 ML Syringe SUBCUT SCH (14:12)
== END 2019-04-06 11:11 | disposition home or self-care (01) ==
LOC: JD.SDS 07:31 → JD.MS 13:35 → JD.SDS 04-05 13:30 → JD.MS 04-05 13:31
PROVIDERS: ADMIT Surgery; ATTEND Surgery
DX: K80.64 Calculus of gallbladder and bile duct with chronic cholecystitis without obstruction (principal); K21.9 Gastro-esophageal reflux disease without esophagitis; I48.91 Unspecified atrial fibrillation; I10 Essential (primary) hypertension; F17.220 Nicotine dependence, chewing tobacco, uncomplicated; Z79.899 Other long term (current) drug therapy; Z79.01 Long term (current) use of anticoagulants
CPT/HCPCS: 36415; 47563; 74300; 80048; 80076; 85610; 86850; 86900; 86901; 88304; 97161; A9270; J0360; J0690; J1610; J1650; J2001; J2370; J2405; J2704; J2710; J3010; J7120; Q9967; G0378

== ENCOUNTER 2019-07-04 11:02 | Inpatient (IN) | payer MEDICARE, BC ==
--- NOTE | 2019-07-04 11:43 | EDM.PDOC ---
ED HPI GENERAL MEDICAL PROBLEM - General Chief Complaint: Abdominal Pain Stated Complaint: WEAK NO STRENTH IN LEGS AND ARMS Time Seen by Provider: 07/04/19 11:38 - History of Present Illness INITIAL COMMENTS - FREE TEXT/NARRATIVE: 84-year-old male presents the emergency room with weakness. According to the family patient has been falling more frequently he fell twice this weekend. And he is perhaps slightly more confused. He has had intermittent lower abdominal discomfort. He has not had any nausea or vomiting. It is unclear if he is hit his head or not. Patient is currently on Coumadin for atrial fibrillation. According to the family that here he does not have any other underlying heart problems or valvular disease. Abdomen Pain Score (Numeric/FACES): 6 - Related Data Allergies Allergy/AdvReac Type Severity Reaction Status Date / Time No Known Allergies Allergy Verified 07/04/19 11:20 Home Meds: Home Meds Metoprolol Succinate 50 mg PO DAILY 08/12/16 [History] Omeprazole 20 mg PO DAILY 01/26/17 [History] Warfarin Sodium [Coumadin] 5 mg PO ASDIRECTED 03/27/19 [History] atorvaSTATin [Lipitor] 20 mg PO DAILY 04/01/19 [History] predniSONE [Prednisone] 5 mg PO DAILY 04/01/19 [History] traMADol [Ultram] 50 mg PO Q4H PRN 3 Days #12 tab 04/04/19 [Rx] Tamsulosin HCl [Flomax] 0.4 mg PO DAILY 07/04/19 [History] Past Medical History HEENT History: Reports: Impaired Vision, Macular Degeneration Other HEENT History: has glasses, partial Cardiovascular History: Reports: Afib, High Cholesterol, Hypertension Respiratory History: Reports: None Gastrointestinal History: Reports: GERD, Hiatal Hernia Other Gastrointestinal History: dysphagia Genitourinary History: Reports: Urinary Incontinence Other Genitourinary History: abnormal PSA MATERIAL CLERK History: Reports: None Musculoskeletal History: Reports: Back Pain, Chronic, Other (See Below) Other Musculoskeletal History: polymyalgia Neurological History: Reports: None Psychiatric History: Reports: None Endocrine/Metabolic History: Reports: Obesity/BMI 30+ Hematologic History: Reports: Anticoagulation Therapy Immunologic History: Reports: None Oncologic (Cancer) History: Reports: Prostate Dermatologic History: Reports: None - Infectious Disease History Infectious Disease History: Reports: None - Past Surgical History Head Surgeries/Procedures: Reports: None HEENT Surgical History: Reports: Other (See Below) Cardiovascular Surgical History: Reports: None Respiratory Surgical History: Reports: None GI Surgical History: Reports: Appendectomy, Cholecystectomy, Colonoscopy Endocrine Surgical History: Reports: None Neurological Surgical History: Reports: None Musculoskeletal Surgical History: Reports: Other (See Below) Other Musculoskeletal Surgeries/Procedures:: knee surgery, broken leg Oncologic Surgical History: Reports: None Social & Family History - Tobacco Use Smoking Status *Q: Never Smoker - Caffeine Use Caffeine Use: Reports: Coffee - Recreational Drug Use Recreational Drug Use: No Drug Use in Last 12 Months: No - Living Situation & Occupation Living situation: Reports: , with Spouse Occupation: Retired ED ROS GENERAL - Review of Systems Review Of Systems: See Below Constitutional: Reports: No Symptoms. Denies: Fever, Chills HEENT: Reports: No Symptoms Respiratory: Reports: No Symptoms. Denies: Shortness of Breath Cardiovascular: Reports: No Symptoms. Denies: Chest Pain, Edema Endocrine: Reports: No Symptoms GI/Abdominal: Reports: Abdominal Pain (Intermittent lower abdominal discomfort) : Reports: Other (He does have lower abdominal discomfort) Musculoskeletal: Reports: No Symptoms Skin: Reports: No Symptoms Neurological: Reports: Confusion. Denies: Dizziness, Headache, Numbness, Paresthesia, Pre-Existing Deficit Psychiatric: Reports: Confusion. Denies: Agitation, Anxiety, Depression, Suicidal Ideation Hematologic/Lymphatic: Reports: No Symptoms ED EXAM, GI/ABD - Physical Exam Exam: See Below Exam Limited By: No Limitations General Appearance: Alert, Other (Patient is oriented to person place but not time) Eyes: Bilateral: Normal Appearance Ears: Normal External Exam, Normal Canal, Hearing Grossly Normal, Normal TMs Nose: Normal Inspection, Normal Mucosa, No Blood Throat/Mouth: Normal Inspection, Normal Lips, Normal Gums, Normal Oropharynx, Normal Voice, No Airway Compromise, Other (He is got dentures on the uppers he does not have his lowers in place) Head: Atraumatic, Normocephalic Neck: Normal Inspection, Supple, Non-Tender, Full Range of Motion. No: Lymphadenopathy (L), Lymphadenopathy (R) Respiratory/Chest: No Respiratory Distress, Lungs Clear, Normal Breath Sounds Cardiovascular: No Edema, Irregularly Irregular GI/Abdominal Exam: Normal Bowel Sounds, Soft, Non-Tender Back Exam: Normal Inspection. No: CVA Tenderness (L), CVA Tenderness (R) Extremities: Normal Inspection, Non-Tender Neurological: Alert, CN II-XII Intact, No Motor/Sensory Deficits, Other (He is talkative and for the most part makes pretty good sense he is oriented to person and place but not to date) Psychiatric: Normal Affect, Normal Mood Skin Exam: Warm, Dry, Intact Lymphatic: No Adenopathy Course - Vital Signs Last Recorded V/S: Last Vital Signs Temp 36.4 C 07/04/19 11:14 Pulse 108 H 07/04/19 11:14 Resp 16 07/04/19 11:14 BP 193/143 H 07/04/19 11:14 Pulse Ox 97 07/04/19 11:14 - Orders/Labs/Meds Orders: Active Orders 24 hr Category Date Time Status Cardiac Monitoring [RC] . DIRECTED Care 07/04/19 12:39 Active EKG Documentation Completion [RC] ASDIRECTED Care 07/04/19 11:12 Active Prince Catheter Insertion [Insert Urinary Catheter] [OM. Care 07/04/19 14:36 Ordered PC] Stat Urinary Catheter Assessment [RC] ASDIRECTED Care 07/04/19 14:37 Active EKG 12 Lead [EK] Stat Ther 07/04/19 11:12 Ordered Labs: Laboratory Tests 07/04/19 07/04/19 07/04/19 Range/Units 12:30 12:30 12:30 WBC 10.13 H (4.23-9.07) K/mm3 RBC 4.83 (4.63-6.08) M/mm3 Hgb 13.9 (13.7-17.5) gm/dl Hct 42.3 (40.1-51.0) % MCV 87.6 (79.0-92.2) fl MCH 28.8 (25.7-32.2) pg MCHC 32.9 (32.2-35.5) g/dl RDW Std Deviation 43.3 (35.1-43.9) fL Plt Count 205 (163-337) K/mm3 MPV 11.2 (9.4-12.3) fl Neut % (Auto) 75.9 H (34.0-67.9) % Lymph % (Auto) 13.2 L (21.8-53.1) % Quay % (Auto) 10.3 (5.3-12.2) % Eos % (Auto) 0.3 L (0.8-7.0) Baso % (Auto) 0.2 (0.1-1.2) % Neut # (Auto) 7.69 H (1.78-5.38) K/mm3 Lymph # (Auto) 1.34 (1.32-3.57) K/mm3 Quay # (Auto) 1.04 H (0.30-0.82) K/mm3 Eos # (Auto) 0.03 L (0.04-0.54) K/mm3 Baso # (Auto) 0.02 (0.01-0.08) K/mm3 PT 22.4 H D (9.7-12.0) SECONDS INR 2.15 Sodium 140 (136-145) mEq/L Potassium 4.2 (3.5-5.1) mEq/L Chloride 103 (98-107) mEq/L Carbon Dioxide 25 (21-32) mEq/L Anion Gap 16.2 H (5-15) BUN 19 H (7-18) mg/dL Creatinine 1.1 (0.7-1.3) mg/dL Est Cr Clr Drug Dosing 46.64 mL/min Estimated GFR (MDRD) > 60 (>60) mL/min BUN/Creatinine Ratio 17.3 (14-18) Glucose 123 H (83-115) mg/dL Calcium 9.2 (8.5-10.1) mg/dL Magnesium (1.8-2.4) mg/dl Total Bilirubin 1.0 (0.2-1.0) mg/dL AST 24 (15-37) U/L ALT 35 (16-63) U/L Alkaline Phosphatase 123 H (46-116) U/L Troponin I < 0.017 (0.00-0.056) ng/mL NT-Pro-B Natriuret Pep (0-450) pg/mL Total Protein 7.3 (6.4-8.2) g/dl Albumin 3.4 (3.4-5.0) g/dl Globulin 3.9 gm/dL Albumin/Globulin Ratio 0.9 L (1-2) TSH 3rd Generation 1.155 (0.358-3.74) uIU/mL Urine Color (Yellow) Urine Appearance (Clear) Urine pH (5.0-8.0) Ur Specific [place] (1.005-1.030) Urine Protein (Negative) Urine Glucose (UA) (Negative) Urine Ketones (Negative) Urine Occult Blood (Negative) Urine Nitrite (Negative) Urine Bilirubin (Negative) Urine Urobilinogen (0.2-1.0) Ur Leukocyte Esterase (Negative) Urine RBC (0-5) /hpf Urine WBC (0-5) /hpf Ur Squamous Epith Cells (0-5) /hpf Urine Bacteria (FEW) /hpf Urine Mucus (FEW) /hpf Urine Opiates Screen (WTWKGS=601) Ur Buprenorphine Scrn (CUTOFF=10) Ur Oxycodone Screen (SYF6MF=305) Urine Methadone Screen (PUZ4BC=673) Ur Propoxyphene Screen (PSOVUU=203) Ur Barbiturates Screen (CYXKZH=482) Ur Tricyclics Screen (HVNPEV=336) Ur Phencyclidine Scrn (CUTOFF=25) Ur Amphetamine Screen (XDAQZL=315) U Methamphetamines Scrn (CZZVYY=193) U Benzodiazepines Scrn (IVJLZD=487) U Cocaine Metab Screen (YXXCWN=994) U Marijuana (THC) Screen (CUTOFF=50) Ethyl Alcohol 0.00 (0.00) gm% 07/04/19 07/04/19 07/04/19 Range/Units 12:30 12:30 14:17 WBC (4.23-9.07) K/mm3 RBC (4.63-6.08) M/mm3 Hgb (13.7-17.5) gm/dl Hct (40.1-51.0) % MCV (79.0-92.2) fl MCH (25.7-32.2) pg MCHC (32.2-35.5) g/dl RDW Std Deviation (35.1-43.9) fL Plt Count (163-337) K/mm3 MPV (9.4-12.3) fl Neut % (Auto) (34.0-67.9) % Lymph % (Auto) (21.8-53.1) % Quay % (Auto) (5.3-12.2) % Eos % (Auto) (0.8-7.0) Baso % (Auto) (0.1-1.2) % Neut # (Auto) (1.78-5.38) K/mm3 Lymph # (Auto) (1.32-3.57) K/mm3 Quay # (Auto) (0.30-0.82) K/mm3 Eos # (Auto) (0.04-0.54) K/mm3 Baso # (Auto) (0.01-0.08) K/mm3 PT (9.7-12.0) SECONDS INR Sodium (136-145) mEq/L Potassium (3.5-5.1) mEq/L Chloride (98-107) mEq/L Carbon Dioxide (21-32) mEq/L Anion Gap (5-15) BUN (7-18) mg/dL Creatinine (0.7-1.3) mg/dL Est Cr Clr Drug Dosing mL/min Estimated GFR (MDRD) (>60) mL/min BUN/Creatinine Ratio (14-18) Glucose (83-115) mg/dL Calcium (8.5-10.1) mg/dL Magnesium 1.8 (1.8-2.4) mg/dl Total Bilirubin (0.2-1.0) mg/dL AST (15-37) U/L ALT (16-63) U/L Alkaline Phosphatase (46-116) U/L Troponin I (0.00-0.056) ng/mL NT-Pro-B Natriuret Pep 2666 H (0-450) pg/mL Total Protein (6.4-8.2) g/dl Albumin (3.4-5.0) g/dl Globulin gm/dL Albumin/Globulin Ratio (1-2) TSH 3rd Generation (0.358-3.74) uIU/mL Urine Color Yellow (Yellow) Urine Appearance Clear (Clear) Urine pH 7.0 (5.0-8.0) Ur Specific [place] 1.025 (1.005-1.030) Urine Protein 1+ H (Negative) Urine Glucose (UA) Negative (Negative) Urine Ketones 1+ H (Negative) Urine Occult Blood Negative (Negative) Urine Nitrite Negative (Negative) Urine Bilirubin Negative (Negative) Urine Urobilinogen 1.0 (0.2-1.0) Ur Leukocyte Esterase Negative (Negative) Urine RBC Not seen (0-5) /hpf Urine WBC 0-5 (0-5) /hpf Ur Squamous Epith Cells 0-5 (0-5) /hpf Urine Bacteria Rare (FEW) /hpf Urine Mucus Few (FEW) /hpf Urine Opiates Screen (ZNJWEI=269) Ur Buprenorphine Scrn (CUTOFF=10) Ur Oxycodone Screen (NIK2DN=115) Urine Methadone Screen (OLY1NS=573) Ur Propoxyphene Screen (JRCFQY=771) Ur Barbiturates Screen (DDOVIO=362) Ur Tricyclics Screen (EMPZNE=370) Ur Phencyclidine Scrn (CUTOFF=25) Ur Amphetamine Screen (KABLYE=615) U Methamphetamines Scrn (IRQBCA=953) U Benzodiazepines Scrn (COPDJW=679) U Cocaine Metab Screen (LCBFOX=734) U Marijuana (THC) Screen (CUTOFF=50) Ethyl Alcohol (0.00) gm% 07/04/19 Range/Units 14:17 WBC (4.23-9.07) K/mm3 RBC (4.63-6.08) M/mm3 Hgb (13.7-17.5) gm/dl Hct (40.1-51.0) % MCV (79.0-92.2) fl MCH (25.7-32.2) pg MCHC (32.2-35.5) g/dl RDW Std Deviation (35.1-43.9) fL Plt Count (163-337) K/mm3 MPV (9.4-12.3) fl Neut % (Auto) (34.0-67.9) % Lymph % (Auto) (21.8-53.1) % Quay % (Auto) (5.3-12.2) % Eos % (Auto) (0.8-7.0) Baso % (Auto) (0.1-1.2) % Neut # (Auto) (1.78-5.38) K/mm3 Lymph # (Auto) (1.32-3.57) K/mm3 Quay # (Auto) (0.30-0.82) K/mm3 Eos # (Auto) (0.04-0.54) K/mm3 Baso # (Auto) (0.01-0.08) K/mm3 PT (9.7-12.0) SECONDS INR Sodium (136-145) mEq/L Potassium (3.5-5.1) mEq/L Chloride (98-107) mEq/L Carbon Dioxide (21-32) mEq/L Anion Gap (5-15) BUN (7-18) mg/dL Creatinine (0.7-1.3) mg/dL Est Cr Clr Drug Dosing mL/min Estimated GFR (MDRD) (>60) mL/min BUN/Creatinine Ratio (14-18) Glucose (83-115) mg/dL Calcium (8.5-10.1) mg/dL Magnesium (1.8-2.4) mg/dl Total Bilirubin (0.2-1.0) mg/dL AST (15-37) U/L ALT (16-63) U/L Alkaline Phosphatase (46-116) U/L Troponin I (0.00-0.056) ng/mL NT-Pro-B Natriuret Pep (0-450) pg/mL Total Protein (6.4-8.2) g/dl Albumin (3.4-5.0) g/dl Globulin gm/dL Albumin/Globulin Ratio (1-2) TSH 3rd Generation (0.358-3.74) uIU/mL Urine Color (Yellow) Urine Appearance (Clear) Urine pH (5.0-8.0) Ur Specific [place] (1.005-1.030) Urine Protein (Negative) Urine Glucose (UA) (Negative) Urine Ketones (Negative) Urine Occult Blood (Negative) Urine Nitrite (Negative) Urine Bilirubin (Negative) Urine Urobilinogen (0.2-1.0) Ur Leukocyte Esterase (Negative) Urine RBC (0-5) /hpf Urine WBC (0-5) /hpf Ur Squamous Epith Cells (0-5) /hpf Urine Bacteria (FEW) /hpf Urine Mucus (FEW) /hpf Urine Opiates Screen Negative (SMUNKT=021) Ur Buprenorphine Scrn Negative (CUTOFF=10) Ur Oxycodone Screen Negative (DVN9ZN=518) Urine Methadone Screen Negative (QWB1AA=431) Ur Propoxyphene Screen Negative (CHGKFD=256) Ur Barbiturates Screen Negative (LONVCZ=560) Ur Tricyclics Screen Negative (OOXYYM=171) Ur Phencyclidine Scrn Negative (CUTOFF=25) Ur Amphetamine Screen Negative (EILSNK=929) U Methamphetamines Scrn Negative (EXBDPX=939) U Benzodiazepines Scrn Negative (QLSQVY=354) U Cocaine Metab Screen Negative (OMPJRE=214) U Marijuana (THC) Screen Negative (CUTOFF=50) Ethyl Alcohol (0.00) gm% - Re-Assessments/Exams Free Text/Narrative Re-Assessment/Exam: 07/04/19 15:00 Thus far as unremarkable still waiting on his urine results. Head CT is unremarkable chest x-ray is unremarkable chemistries show mild dehydration. INR is therapeutic. 07/04/19 16:29 The patient safest option is to be admitted for fpc placement discussed this with the family. It took us quite a while to be able to figure out if we can keep the patient here to facilitate placement in a fpc. Departure - Departure Time of Disposition: 16:30 Disposition: Admitted As Inpatient 64 Clinical Impression: Falls frequently - Discharge Information Referrals: Jason Peters MD [Primary Care Provider] - Forms: ED Department Discharge Sepsis Event Note - Evaluation Sepsis Screening Result: No Definite Risk - Focused Exam Vital Signs: Vital Signs Temp Pulse Resp BP Pulse Ox 07/04/19 11:14 36.4 C 108 H 16 193/143 H 97 Date Exam was Performed: 07/04/19 Time Exam was Performed: 16:29 - My Orders Last 24 Hours: My Active Orders 07/04/19 11:12 EKG Documentation Completion [RC] ASDIRECTED EKG 12 Lead [EK] Stat 07/04/19 12:39 Cardiac Monitoring [RC] . DIRECTED 07/04/19 14:36 Prince Catheter Insertion [Insert Urinary Catheter] [OM.PC] Stat 07/04/19 14:37 Urinary Catheter Assessment [RC] ASDIRECTED - Assessment/Plan Last 24 Hours: My Active Orders 07/04/19 11:12 EKG Documentation Completion [RC] ASDIRECTED EKG 12 Lead [EK] Stat 07/04/19 12:39 Cardiac Monitoring [RC] . DIRECTED 07/04/19 14:36 Prince Catheter Insertion [Insert Urinary Catheter] [OM.PC] Stat 07/04/19 14:37 Urinary Catheter Assessment [RC] ASDIRECTED
--- NOTE | 2019-07-04 13:40 | CR ---
Chest: Two views of the chest were obtained. Comparison: Prior chest x-ray of 03/27/19. Heart size is normal. Tortuous thoracic aorta is seen. Slight increased lung markings are seen believed to be fairly stable from prior. No definite acute parenchymal change is seen. Blunting of the right lateral costophrenic angle is seen. Bony structures are grossly intact. Impression: 1. Findings as noted above. No appreciable change from previous chest x-ray is seen. Diagnostic code #2 This report was dictated in [place] Standard Time
--- NOTE | 2019-07-04 13:41 | CT ---
Head CT Technique: Multiple axial sections through the brain were obtained. Comparison: Previous MRI brain of 01/09/17. Findings: Moderate atrophy is seen within the brain. Diffuse diminished density is noted within the periventricular and subcortical white matter most likely representing prominent small vessel ischemic demyelination change. Similar findings are noted within the middle cerebellar peduncles and adjacent cerebellar white matter. No other abnormal parenchymal densities are seen. No evidence of intracranial hemorrhage. No midline shift or mass-effect is appreciated. Visualized mastoid sinuses show nothing acute. Visualized paranasal sinuses show minimal areas of mucosal thickening which appeared nonacute. No acute calvarial abnormality is appreciated. Impression: 1. Senescent change as noted above. 2. No acute intracranial abnormality is appreciated. Diagnostic code #2 This report was dictated in [place] Standard Time
--- NOTE | 2019-07-04 21:46 | PCM.HP.2 ---
H&P History of Present Illness - General Date of Service: 07/04/19 Admit Problem/Dx: Admission Diagnosis/Problem Admission Diagnosis/Problem Fall at home - History of Present Illness Initial Comments - Free Text/Narative: This is an 84-year-old male with past medical history of atrial fibrillation and dementia who is brought to the ED by for worsening weakness. Patient too confused to answer questions for which history and information was obtained by chart review and . As per the patient has been becoming increasingly weak accompanied with falls, including 2 falls this past weekend. Head trauma is unclear. She does note he has been more confused lately with intermittent abdominal pain but no nausea, vomiting, diarrhea or constipation. Abdomen Pain Score (Numeric/FACES): 6 - Related Data Allergies/Adverse Reactions: Allergies Allergy/AdvReac Type Severity Reaction Status Date / Time No Known Allergies Allergy Verified 07/04/19 17:40 Home Medications: Home Meds Omeprazole 20 mg PO DAILY 01/26/17 [History] Warfarin Sodium [Coumadin] 5 mg PO SUTUWETHSA 03/27/19 [History] predniSONE [Prednisone] 5 mg PO DAILY 04/01/19 [History] Tamsulosin HCl [Flomax] 0.4 mg PO DAILY 07/04/19 [History] Metoprolol Succinate 100 mg PO DAILY 07/05/19 [History] Warfarin [Coumadin] 2.5 mg PO MOFR 07/05/19 [History] Past Medical History HEENT History: Reports: Impaired Vision, Macular Degeneration Other HEENT History: has glasses, dentures Cardiovascular History: Reports: Afib, High Cholesterol, Hypertension Respiratory History: Reports: SOB Gastrointestinal History: Reports: GERD, Hiatal Hernia, Other (See Below) Other Gastrointestinal History: dysphagia Genitourinary History: Reports: Prostate Disorder, Urinary Incontinence Other Genitourinary History: abnormal PSA PRICING COORDINATOR History: Reports: None Musculoskeletal History: Reports: Arthritis, Back Pain, Chronic, Other (See Below) Other Musculoskeletal History: polymyalgia Neurological History: Reports: None Psychiatric History: Reports: Other (See Below) Other Psychiatric History: worse weakness and increased confusion in the afternoon Endocrine/Metabolic History: Reports: Obesity/BMI 30+ Hematologic History: Reports: Anticoagulation Therapy Immunologic History: Reports: None Oncologic (Cancer) History: Reports: Prostate Dermatologic History: Reports: None - Infectious Disease History Infectious Disease History: Reports: None - Past Surgical History Head Surgeries/Procedures: Reports: None HEENT Surgical History: Reports: None Cardiovascular Surgical History: Reports: None Respiratory Surgical History: Reports: None GI Surgical History: Reports: Appendectomy, Cholecystectomy, Colonoscopy Male Surgical History: Reports: None Endocrine Surgical History: Reports: None Neurological Surgical History: Reports: None Musculoskeletal Surgical History: Reports: Other (See Below) Other Musculoskeletal Surgeries/Procedures:: knee surgery, broken leg Oncologic Surgical History: Reports: None Social & Family History - Family History Family Medical History: Noncontributory - Tobacco Use Smoking Status *Q: Never Smoker - Caffeine Use Caffeine Use: Reports: Coffee - Recreational Drug Use Recreational Drug Use: No Drug Use in Last 12 Months: No - Living Situation & Occupation Living situation: Reports: , with Spouse Occupation: Retired H&P Review of Systems - Review of Systems: Review Of Systems: Unable To Obtain Reason Not Obtained: altered mental status with baseline dementia Exam - Exam Exam: See Below - Vital Signs Vital Signs: Last Vital Signs Temp 97.6 F 07/04/19 11:14 Pulse 85 07/04/19 17:36 Resp 20 07/04/19 17:36 BP 174/89 H 07/04/19 17:36 Pulse Ox 97 07/04/19 17:36 Weight: 89.63 kg - Exam Physical Exam Comments:: Exam Limited By: No Limitations General Appearance: Alert, Other (Patient is oriented to person place but not time) Eyes: Bilateral: Normal Appearance Ears: Normal External Exam, Normal Canal, Hearing Grossly Normal, Normal TMs Nose: Normal Inspection, Normal Mucosa, No Blood Throat/Mouth: Normal Inspection, Normal Lips, Normal Gums, Normal Oropharynx, Normal Voice, No Airway Compromise, Other (He is got dentures on the uppers he does not have his lowers in place) Head: Atraumatic, Normocephalic Neck: Normal Inspection, Supple, Non-Tender, Full Range of Motion. No: Lymphadenopathy (L), Lymphadenopathy (R) Respiratory/Chest: No Respiratory Distress, Lungs Clear, Normal Breath Sounds Cardiovascular: No Edema, Irregularly Irregular GI/Abdominal Exam: Normal Bowel Sounds, Soft, Non-Tender Back Exam: Normal Inspection. No: CVA Tenderness (L), CVA Tenderness (R) Extremities: Normal Inspection, Non-Tender Neurological: Alert, CN II-XII Intact, No Motor/Sensory Deficits, Other (He is talkative and for the most part makes pretty good sense he is oriented to person and place but not to date) Psychiatric: Normal Affect, Normal Mood Skin Exam: Warm, Dry, Intact Lymphatic: No Adenopathy - Patient Data Result Diagrams: 07/04/19 12:30 07/04/19 12:30 Sepsis Event Note - Evaluation Sepsis Screening Result: No Definite Risk - Focused Exam Vital Signs: Vital Signs Temp Pulse Pulse Resp BP BP Pulse Ox 07/04/19 17:36 85 20 174/89 H 97 07/04/19 11:14 97.6 F 108 H 16 193/143 H 97 Date Exam was Performed: 07/06/19 Time Exam was Performed: 04:26 - Problem List (1) Hospital admission due to social situation SNOMED Code(s): 833557133 ICD Code: Z60.9 - PROBLEM RELATED TO SOCIAL ENVIRONMENT, UNSPECIFIED Status : Acute Priority: High Current Visit: Yes (2) Falls frequently SNOMED Code(s): 311836350 ICD Code: R29.6 - REPEATED FALLS Status: Acute Priority: High Current Visit: Yes (3) Anticoagulated on Coumadin SNOMED Code(s): 38879454 ICD Code: Z79.01 - USP (CURRENT) USE OF ANTICOAGULANTS Status: Acute Current Visit: Yes (4) Afib SNOMED Code(s): 45360300 ICD Code: I48.91 - UNSPECIFIED ATRIAL FIBRILLATION Status: Chronic Priority: Medium Current Visit: Yes Qualifiers: Atrial fibrillation type: unspecified Qualified Code(s): I48.91 - Unspecified atrial fibrillation (5) Dysphagia SNOMED Code(s): 30095155, 221574740 ICD Code: R13.10 - DYSPHAGIA, UNSPECIFIED Status: Chronic Priority: Medium Current Visit: Yes Qualifiers: Dysphagia type: unspecified Qualified Code(s): R13.10 - Dysphagia, unspecified (6) HLD (hyperlipidemia) SNOMED Code(s): 87279160 ICD Code: E78.5 - HYPERLIPIDEMIA, UNSPECIFIED Status: Chronic Priority: Low Current Visit: No Qualifiers: Hyperlipidemia type: unspecified Qualified Code(s): E78.5 - Hyperlipidemia , unspecified (7) HTN (hypertension) SNOMED Code(s): 08504930 ICD Code: I10 - ESSENTIAL (PRIMARY) HYPERTENSION Status: Chronic Priority : Medium Current Visit: No Qualifiers: Hypertension type: unspecified Qualified Code(s): I10 - Essential (primary ) hypertension (8) History of prostate cancer SNOMED Code(s): 958877907 ICD Code: Z85.46 - PERSONAL HISTORY OF MALIGNANT NEOPLASM OF PROSTATE Status: Chronic Priority: Low Current Visit: No (9) Macular degeneration SNOMED Code(s): 805532238 ICD Code: H35.30 - UNSPECIFIED MACULAR DEGENERATION Status: Chronic Priority: Low Current Visit: No Qualifiers: Macular degeneration type: unspecified type Eye laterality: unspecified Qualified Code(s): H35.30 - Unspecified macular degeneration (10) Urinary incontinence SNOMED Code(s): 564623565 ICD Code: R32 - UNSPECIFIED URINARY INCONTINENCE Status: Chronic Priority : Low Current Visit: No Qualifiers: Urinary Incontinence type: unspecified incontinence Qualified Code(s): R32 - Unspecified urinary incontinence Problem List Initiated/Reviewed/Updated: Yes Assessment/Plan Comment:: Hospital admission due to social situation Falls frequently Chronic deconditioning Dysphagia Patient has been taking care of patient but is unable to fo it any further and other family members work which makes it impossible to take care of him at home Explained to them about 3 days requirement of acute care hospital stay prior to transfer Documented dysphagia on previous documentation Needs cane or walker but still needs more assistance at home, 2 assist PLAN - Let me sleep protocol - Case management and psychotherapist social worker consult for discharge planning and remote computer terminal operator placement - PT and OT consult for recommendations for placement - Dietary consult - Speech therapy consult Hypertension, uncontrolled Bp on admission 193/147 Home management with metoprolol PLAN - Continue metoprolol once PO - PRN labetalol Atrial fibrillation, CHADs VASc- 4 Anticoagulated on Coumadin Home management with metoprolol and Warfarin HR on admission 108x' INR on admission therapeutic, 2.15 PLAN - Goal INR 2-3 - Pharmacy to dose warfarin - PRN IV labetalol for HR > 110x' PROPHYLAXIS DVT- Warfarin GI- Not indicated CODE STATUS: FULL CODE DISPOSITION: Will be admitted for PT/OT evaluation and recommendations for placement as well as speech therapy evaluation for diet recommendations. Lives in [place] with Needs cane or walker but still needs more assistance at home. - Mortality Measure Prognosis:: Poor
[2019-07-04] MEDS ORDERED: Haloperidol Lactate 5 MG/ML SDV IVPUSH PRN (22:40)
[2019-07-05] MEDS ORDERED: Warfarin Sliding Scale PO SCH (09:00)
--- NOTE | 2019-07-05 09:40 | PCM.PN ---
- General Info Date of Service: 07/05/19 Admission Dx/Problem (Free Text): Admission Diagnosis/Problem Admission Diagnosis/Problem Fall at home Functional Status: Reports: Pain Controlled, Tolerating Diet, Ambulating, Urinating. Denies: New Symptoms - Review of Systems General: Reports: Weakness. Denies: Fever, Fatigue, Malaise, Chills HEENT: Reports: No Symptoms. Denies: Headaches, Sore Throat Pulmonary: Reports: No Symptoms. Denies: Shortness of Breath, Cough, Sputum, Wheezing Cardiovascular: Reports: No Symptoms. Denies: Chest Pain, Palpitations, Dyspnea on Exertion Gastrointestinal: Reports: No Symptoms. Denies: Abdominal Pain, Constipation, Diarrhea, Nausea, Vomiting Genitourinary: Reports: No Symptoms. Denies: Pain Musculoskeletal: Reports: No Symptoms Skin: Reports: No Symptoms Neurological: Reports: Confusion (baseline ), Difficulty Walking, Weakness, Gait Disturbance. Denies: Dizziness, Headache, Numbness, Pre-Existing Deficit, Tingling, Trouble Speaking, Change in Speech Psychiatric: Reports: No Symptoms - Patient Data Vitals - Most Recent: Last Vital Signs Temp 97.9 F 07/05/19 07:25 Pulse 106 H 07/05/19 07:25 Resp 24 H 07/05/19 07:25 BP 152/106 H 07/05/19 07:26 Pulse Ox 100 07/05/19 07:25 Weight - Most Recent: 197 lb 6.4 oz I&O - Last 24 Hours: Intake & Output 07/04/19 07/05/19 07/05/19 22:59 06:59 14:59 Intake Total 0 Output Total 500 Balance -500 Lab Results Last 24 Hours: Laboratory Results - last 24 hr 07/04/19 07/04/19 07/04/19 Range/Units 12:30 12:30 12:30 WBC 10.13 H (4.23-9.07) K/mm3 RBC 4.83 (4.63-6.08) M/mm3 Hgb 13.9 (13.7-17.5) gm/dl Hct 42.3 (40.1-51.0) % MCV 87.6 (79.0-92.2) fl MCH 28.8 (25.7-32.2) pg MCHC 32.9 (32.2-35.5) g/dl RDW Std Deviation 43.3 (35.1-43.9) fL Plt Count 205 (163-337) K/mm3 MPV 11.2 (9.4-12.3) fl Neut % (Auto) 75.9 H (34.0-67.9) % Lymph % (Auto) 13.2 L (21.8-53.1) % [place] % (Auto) 10.3 (5.3-12.2) % Eos % (Auto) 0.3 L (0.8-7.0) Baso % (Auto) 0.2 (0.1-1.2) % Neut # (Auto) 7.69 H (1.78-5.38) K/mm3 Lymph # (Auto) 1.34 (1.32-3.57) K/mm3 [place] # (Auto) 1.04 H (0.30-0.82) K/mm3 Eos # (Auto) 0.03 L (0.04-0.54) K/mm3 Baso # (Auto) 0.02 (0.01-0.08) K/mm3 PT 22.4 H D (9.7-12.0) SECONDS INR 2.15 Sodium 140 (136-145) mEq/L Potassium 4.2 (3.5-5.1) mEq/L Chloride 103 (98-107) mEq/L Carbon Dioxide 25 (21-32) mEq/L Anion Gap 16.2 H (5-15) BUN 19 H (7-18) mg/dL Creatinine 1.1 (0.7-1.3) mg/dL Est Cr Clr Drug Dosing 46.64 mL/min Estimated GFR (MDRD) > 60 (>60) mL/min BUN/Creatinine Ratio 17.3 (14-18) Glucose 123 H (83-115) mg/dL Calcium 9.2 (8.5-10.1) mg/dL Magnesium (1.8-2.4) mg/dl Total Bilirubin 1.0 (0.2-1.0) mg/dL AST 24 (15-37) U/L ALT 35 (16-63) U/L Alkaline Phosphatase 123 H (46-116) U/L Troponin I < 0.017 (0.00-0.056) ng/mL NT-Pro-B Natriuret Pep (0-450) pg/mL Total Protein 7.3 (6.4-8.2) g/dl Albumin 3.4 (3.4-5.0) g/dl Globulin 3.9 gm/dL Albumin/Globulin Ratio 0.9 L (1-2) TSH 3rd Generation 1.155 (0.358-3.74) uIU/mL Urine Color (Yellow) Urine Appearance (Clear) Urine pH (5.0-8.0) Ur Specific [place] (1.005-1.030) Urine Protein (Negative) Urine Glucose (UA) (Negative) Urine Ketones (Negative) Urine Occult Blood (Negative) Urine Nitrite (Negative) Urine Bilirubin (Negative) Urine Urobilinogen (0.2-1.0) Ur Leukocyte Esterase (Negative) Urine RBC (0-5) /hpf Urine WBC (0-5) /hpf Ur Squamous Epith Cells (0-5) /hpf Urine Bacteria (FEW) /hpf Urine Mucus (FEW) /hpf Urine Opiates Screen (MGWZGM=534) Ur Buprenorphine Scrn (CUTOFF=10) Ur Oxycodone Screen (TWJ2VS=904) Urine Methadone Screen (KSP8FO=088) Ur Propoxyphene Screen (EKTAAN=183) Ur Barbiturates Screen (GXZHRN=465) Ur Tricyclics Screen (UVODWF=465) Ur Phencyclidine Scrn (CUTOFF=25) Ur Amphetamine Screen (BKXNBD=862) U Methamphetamines Scrn (BRYYHN=093) U Benzodiazepines Scrn (YDBPAS=950) U Cocaine Metab Screen (BOAWFB=661) U Marijuana (THC) Screen (CUTOFF=50) Ethyl Alcohol 0.00 (0.00) gm% 07/04/19 07/04/19 07/04/19 Range/Units 12:30 12:30 14:17 WBC (4.23-9.07) K/mm3 RBC (4.63-6.08) M/mm3 Hgb (13.7-17.5) gm/dl Hct (40.1-51.0) % MCV (79.0-92.2) fl MCH (25.7-32.2) pg MCHC (32.2-35.5) g/dl RDW Std Deviation (35.1-43.9) fL Plt Count (163-337) K/mm3 MPV (9.4-12.3) fl Neut % (Auto) (34.0-67.9) % Lymph % (Auto) (21.8-53.1) % [place] % (Auto) (5.3-12.2) % Eos % (Auto) (0.8-7.0) Baso % (Auto) (0.1-1.2) % Neut # (Auto) (1.78-5.38) K/mm3 Lymph # (Auto) (1.32-3.57) K/mm3 [place] # (Auto) (0.30-0.82) K/mm3 Eos # (Auto) (0.04-0.54) K/mm3 Baso # (Auto) (0.01-0.08) K/mm3 PT (9.7-12.0) SECONDS INR Sodium (136-145) mEq/L Potassium (3.5-5.1) mEq/L Chloride (98-107) mEq/L Carbon Dioxide (21-32) mEq/L Anion Gap (5-15) BUN (7-18) mg/dL Creatinine (0.7-1.3) mg/dL Est Cr Clr Drug Dosing mL/min Estimated GFR (MDRD) (>60) mL/min BUN/Creatinine Ratio (14-18) Glucose (83-115) mg/dL Calcium (8.5-10.1) mg/dL Magnesium 1.8 (1.8-2.4) mg/dl Total Bilirubin (0.2-1.0) mg/dL AST (15-37) U/L ALT (16-63) U/L Alkaline Phosphatase (46-116) U/L Troponin I (0.00-0.056) ng/mL NT-Pro-B Natriuret Pep 2666 H (0-450) pg/mL Total Protein (6.4-8.2) g/dl Albumin (3.4-5.0) g/dl Globulin gm/dL Albumin/Globulin Ratio (1-2) TSH 3rd Generation (0.358-3.74) uIU/mL Urine Color Yellow (Yellow) Urine Appearance Clear (Clear) Urine pH 7.0 (5.0-8.0) Ur Specific [place] 1.025 (1.005-1.030) Urine Protein 1+ H (Negative) Urine Glucose (UA) Negative (Negative) Urine Ketones 1+ H (Negative) Urine Occult Blood Negative (Negative) Urine Nitrite Negative (Negative) Urine Bilirubin Negative (Negative) Urine Urobilinogen 1.0 (0.2-1.0) Ur Leukocyte Esterase Negative (Negative) Urine RBC Not seen (0-5) /hpf Urine WBC 0-5 (0-5) /hpf Ur Squamous Epith Cells 0-5 (0-5) /hpf Urine Bacteria Rare (FEW) /hpf Urine Mucus Few (FEW) /hpf Urine Opiates Screen (QXFETR=175) Ur Buprenorphine Scrn (CUTOFF=10) Ur Oxycodone Screen (OLM8WU=946) Urine Methadone Screen (DPP6HT=777) Ur Propoxyphene Screen (LJDWUA=046) Ur Barbiturates Screen (WIVPOK=696) Ur Tricyclics Screen (CSAFCM=890) Ur Phencyclidine Scrn (CUTOFF=25) Ur Amphetamine Screen (LMMVJY=279) U Methamphetamines Scrn (QPELFV=319) U Benzodiazepines Scrn (AVNPUB=278) U Cocaine Metab Screen (VVQSRL=046) U Marijuana (THC) Screen (CUTOFF=50) Ethyl Alcohol (0.00) gm% 07/04/19 07/05/19 Range/Units 14:17 05:45 WBC (4.23-9.07) K/mm3 RBC (4.63-6.08) M/mm3 Hgb (13.7-17.5) gm/dl Hct (40.1-51.0) % MCV (79.0-92.2) fl MCH (25.7-32.2) pg MCHC (32.2-35.5) g/dl RDW Std Deviation (35.1-43.9) fL Plt Count (163-337) K/mm3 MPV (9.4-12.3) fl Neut % (Auto) (34.0-67.9) % Lymph % (Auto) (21.8-53.1) % [place] % (Auto) (5.3-12.2) % Eos % (Auto) (0.8-7.0) Baso % (Auto) (0.1-1.2) % Neut # (Auto) (1.78-5.38) K/mm3 Lymph # (Auto) (1.32-3.57) K/mm3 [place] # (Auto) (0.30-0.82) K/mm3 Eos # (Auto) (0.04-0.54) K/mm3 Baso # (Auto) (0.01-0.08) K/mm3 PT 21.0 H (9.7-12.0) SECONDS INR 2.00 Sodium (136-145) mEq/L Potassium (3.5-5.1) mEq/L Chloride (98-107) mEq/L Carbon Dioxide (21-32) mEq/L Anion Gap (5-15) BUN (7-18) mg/dL Creatinine (0.7-1.3) mg/dL Est Cr Clr Drug Dosing mL/min Estimated GFR (MDRD) (>60) mL/min BUN/Creatinine Ratio (14-18) Glucose (83-115) mg/dL Calcium (8.5-10.1) mg/dL Magnesium (1.8-2.4) mg/dl Total Bilirubin (0.2-1.0) mg/dL AST (15-37) U/L ALT (16-63) U/L Alkaline Phosphatase (46-116) U/L Troponin I (0.00-0.056) ng/mL NT-Pro-B Natriuret Pep (0-450) pg/mL Total Protein (6.4-8.2) g/dl Albumin (3.4-5.0) g/dl Globulin gm/dL Albumin/Globulin Ratio (1-2) TSH 3rd Generation (0.358-3.74) uIU/mL Urine Color (Yellow) Urine Appearance (Clear) Urine pH (5.0-8.0) Ur Specific [place] (1.005-1.030) Urine Protein (Negative) Urine Glucose (UA) (Negative) Urine Ketones (Negative) Urine Occult Blood (Negative) Urine Nitrite (Negative) Urine Bilirubin (Negative) Urine Urobilinogen (0.2-1.0) Ur Leukocyte Esterase (Negative) Urine RBC (0-5) /hpf Urine WBC (0-5) /hpf Ur Squamous Epith Cells (0-5) /hpf Urine Bacteria (FEW) /hpf Urine Mucus (FEW) /hpf Urine Opiates Screen Negative (GDROPS=001) Ur Buprenorphine Scrn Negative (CUTOFF=10) Ur Oxycodone Screen Negative (BVP3HU=161) Urine Methadone Screen Negative (OKK1EJ=198) Ur Propoxyphene Screen Negative (VPQWUP=821) Ur Barbiturates Screen Negative (FNEUNM=458) Ur Tricyclics Screen Negative (EYJJOL=594) Ur Phencyclidine Scrn Negative (CUTOFF=25) Ur Amphetamine Screen Negative (KZVMBK=117) U Methamphetamines Scrn Negative (BGXHVP=090) U Benzodiazepines Scrn Negative (QXXDOD=203) U Cocaine Metab Screen Negative (UCXLWR=644) U Marijuana (THC) Screen Negative (CUTOFF=50) Ethyl Alcohol (0.00) gm% Med Orders - Current: Current Medications Haloperidol Lactate (Haldol) 0.5 mg IVPUSH ONETIME PRN PRN Reason: Anxiety Warfarin Sodium (Pharmacy To Dose - Warfarin) 1 dose PO ASDIRECTED PRN PRN Reason: RX TO DOSE - Exam Quality Assessment: DVT Prophylaxis General: Alert, Cooperative, No Acute Distress. No: Oriented (mostly ) HEENT: Pupils Equal, Pupils Reactive, Mucous Membr. Moist/[place] Neck: Supple, Trachea Midline Lungs: Clear to Auscultation, Normal Respiratory Effort Cardiovascular: Irregular Rhythm GI/Abdominal Exam: Normal Bowel Sounds, Soft, Non-Tender, No Distention (Male) Exam: Deferred Back Exam: Normal Inspection, Decreased Range of Motion Extremities: Normal Inspection, Normal Range of Motion, Non-Tender, No Pedal Edema, Normal Capillary Refill Peripheral Pulses: 0: Dorsalis Pedis (R), 2+: Radial (L), Radial (R), Dorsalis Pedis (L) Skin: Warm, Dry, Intact Neurological: No New Focal Deficit Psy/Mental Status: Alert, Normal Affect Sepsis Event Note - Evaluation Sepsis Screening Result: No Definite Risk - Focused Exam Vital Signs: Vital Signs Temp Pulse Resp BP Pulse Ox 07/05/19 07:26 152/106 H 07/05/19 07:25 97.9 F 106 H 24 H 100 07/04/19 23:31 98.4 F 102 H 18 118/66 95 Date Exam was Performed: 07/06/19 Time Exam was Performed: 07:45 - Problem List & Annotations (1) Falls frequently SNOMED Code(s): 711569938 Code(s): R29.6 - REPEATED FALLS Status: Acute Priority: High Current Visit: Yes (2) Hospital admission due to social situation SNOMED Code(s): 061922185 Code(s): Z60.9 - PROBLEM RELATED TO SOCIAL ENVIRONMENT, UNSPECIFIED Status : Acute Priority: High Current Visit: Yes (3) Macular degeneration SNOMED Code(s): 979150209 Code(s): H35.30 - UNSPECIFIED MACULAR DEGENERATION Status: Chronic Priority: Low Current Visit: No Qualifiers: Macular degeneration type: unspecified type Eye laterality: unspecified Qualified Code(s): H35.30 - Unspecified macular degeneration (4) Afib SNOMED Code(s): 00977655 Code(s): I48.91 - UNSPECIFIED ATRIAL FIBRILLATION Status: Chronic Priority: Medium Current Visit: Yes Qualifiers: Atrial fibrillation type: unspecified Qualified Code(s): I48.91 - Unspecified atrial fibrillation (5) HLD (hyperlipidemia) SNOMED Code(s): 96229374 Code(s): E78.5 - HYPERLIPIDEMIA, UNSPECIFIED Status: Chronic Priority: Low Current Visit: No Qualifiers: Hyperlipidemia type: unspecified Qualified Code(s): E78.5 - Hyperlipidemia , unspecified (6) HTN (hypertension) SNOMED Code(s): 16805843 Code(s): I10 - ESSENTIAL (PRIMARY) HYPERTENSION Status: Chronic Priority : Medium Current Visit: No Qualifiers: Hypertension type: unspecified Qualified Code(s): I10 - Essential (primary ) hypertension (7) GERD (gastroesophageal reflux disease) SNOMED Code(s): 807222309 Code(s): K21.9 - GASTRO-ESOPHAGEAL REFLUX DISEASE WITHOUT ESOPHAGITIS Status: Chronic Priority: Low Current Visit: No Qualifiers: Esophagitis presence: esophagitis presence not specified Qualified Code(s) : K21.9 - Gastro-esophageal reflux disease without esophagitis (8) Hiatal hernia SNOMED Code(s): 61134494 Code(s): K44.9 - DIAPHRAGMATIC HERNIA WITHOUT OBSTRUCTION OR GANGRENE Status: Chronic Priority: Low Current Visit: No (9) Dysphagia SNOMED Code(s): 60828312, 333522052 Code(s): R13.10 - DYSPHAGIA, UNSPECIFIED Status: Chronic Priority: Medium Current Visit: Yes Qualifiers: Dysphagia type: unspecified Qualified Code(s): R13.10 - Dysphagia, unspecified (10) Prostate disease SNOMED Code(s): 88624119 Code(s): N42.9 - DISORDER OF PROSTATE, UNSPECIFIED Status: Chronic Priority: Low Current Visit: No (11) Urinary incontinence SNOMED Code(s): 787351536 Code(s): R32 - UNSPECIFIED URINARY INCONTINENCE Status: Chronic Priority : Low Current Visit: No Qualifiers: Urinary Incontinence type: unspecified incontinence Qualified Code(s): R32 - Unspecified urinary incontinence (12) Arthritis SNOMED Code(s): 4186289 Code(s): M19.90 - UNSPECIFIED OSTEOARTHRITIS, UNSPECIFIED SITE Status: Chronic Priority: Low Current Visit: No (13) Chronic back pain SNOMED Code(s): 523263445 Code(s): M54.9 - DORSALGIA, UNSPECIFIED; G89.29 - OTHER CHRONIC PAIN Status : Chronic Priority: Low Current Visit: No Qualifiers: Back pain location: back pain in unspecified location Back pain laterality : unspecified Qualified Code(s): M54.9 - Dorsalgia, unspecified; G89.29 - Other chronic pain (14) Polymyalgia SNOMED Code(s): 48077709 Code(s): M35.3 - POLYMYALGIA RHEUMATICA Status: Chronic Priority: Low Current Visit: No (15) Obesity SNOMED Code(s): 660626062, 452195559 Code(s): E66.9 - OBESITY, UNSPECIFIED Status: Chronic Priority: Low Current Visit: No Qualifiers: Obesity type: unspecified obesity type Obesity classification: adult class 1 (BMI 30 - 34.9) Serious obesity comorbidity presence: unspecified whether serious comorbidity present Body mass index: BMI 30.0-30.9 Qualified Code(s) : E66.9 - Obesity, unspecified; Z68.30 - Body mass index (BMI) 30.0-30.9, adult (16) Chronic anticoagulation SNOMED Code(s): 768222125 Code(s): Z79.01 - DETENTION (CURRENT) USE OF ANTICOAGULANTS Status: Chronic Priority: Medium Current Visit: Yes (17) History of prostate cancer SNOMED Code(s): 909515300 Code(s): Z85.46 - PERSONAL HISTORY OF MALIGNANT NEOPLASM OF PROSTATE Status : Chronic Priority: Low Current Visit: No (18) Weakness SNOMED Code(s): 27350947 Code(s): R53.1 - WEAKNESS Status: Acute Priority: High Current Visit: Yes (19) Anticoagulated on Coumadin SNOMED Code(s): 45970168 Code(s): Z79.01 - INDUSTRIAL CUSTODIAN (CURRENT) USE OF ANTICOAGULANTS Status: Chronic Priority: High Current Visit: Yes - Problem List Review Problem List Initiated/Reviewed/Updated: Yes - Plan Plan:: Hospital admission due to social situation Falls frequently Chronic deconditioning Dysphagia Patient has been taking care of patient but is unable to fo it any further and other family members work which makes it impossible to take care of him at home Explained to them about 3 days requirement of acute care hospital stay prior to transfer Documented dysphagia on previous documentation Needs cane or walker but still needs more assistance at home, 2 assist PLAN - Let me sleep protocol - Case management and social work lecturer consult for discharge planning and assistant terminal manager placement - PT and OT consult for recommendations for placement - Dietary consult - Speech therapy consult Hypertension, uncontrolled Bp on admission 193/147 Home management with metoprolol PLAN - Continue metoprolol - PRN labetalol Atrial fibrillation, CHADs VASc- 4 Anticoagulated on Coumadin Home management with metoprolol and Warfarin HR on admission 108x' INR on admission therapeutic, 2.15 PLAN - Goal INR 2-3 - Pharmacy to dose warfarin - PRN IV labetalol for HR > 110x' PROPHYLAXIS DVT- Warfarin GI- Not indicated CODE STATUS: FULL CODE DISPOSITION: Will be admitted for PT/OT evaluation and recommendations for placement as well as speech therapy evaluation for diet recommendations. Lives in [place] with Needs cane or walker but still needs more assistance at home.
[2019-07-05] MEDS: Metoprolol Succinate 50 MG Tab.ER PO SCH (12:39)
[2019-07-05] MEDS: Tamsulosin 0.4 MG Cap.ER PO SCH (12:40)
[2019-07-05] MEDS: predniSONE 5 MG Tab PO SCH (12:41)
[2019-07-05] MEDS: Pantoprazole 40 MG Tab.CR PO SCH (12:41)
[2019-07-05] MEDS ORDERED: Warfarin 5 MG Tab PO SCH (18:00)
--- NOTE | 2019-07-06 07:13 | PCM.PN ---
Addendum entered and electronically signed by Jacinto Ma PA-C 07/06/19 10:56 : additional diagnosis: Failure to thrive. Original Note: - General Info Date of Service: 07/06/19 Admission Dx/Problem (Free Text): Admission Diagnosis/Problem Admission Diagnosis/Problem Fall at home Functional Status: Reports: Pain Controlled, Tolerating Diet, Ambulating, Urinating. Denies: New Symptoms - Review of Systems General: Reports: Weakness. Denies: Fever, Fatigue, Malaise, Chills HEENT: Reports: No Symptoms. Denies: Headaches, Sore Throat Pulmonary: Reports: No Symptoms. Denies: Shortness of Breath, Pleuritic Chest Pain, Cough, Sputum, Wheezing Cardiovascular: Reports: No Symptoms. Denies: Chest Pain, Palpitations, Edema Gastrointestinal: Reports: No Symptoms. Denies: Abdominal Pain, Constipation, Diarrhea, Nausea, Vomiting Genitourinary: Reports: No Symptoms. Denies: Pain Musculoskeletal: Reports: No Symptoms Skin: Reports: No Symptoms. Denies: Cyanosis Neurological: Reports: Confusion (baseline), Difficulty Walking, Weakness, Gait Disturbance Psychiatric: Reports: No Symptoms - Patient Data Vitals - Most Recent: Last Vital Signs Temp 98.4 F 07/06/19 03:24 Pulse 115 H 07/06/19 03:24 Resp 20 07/06/19 03:24 BP 155/80 H 07/06/19 03:24 Pulse Ox 97 07/06/19 03:24 Weight - Most Recent: 197 lb 6.4 oz I&O - Last 24 Hours: Intake & Output 07/05/19 07/06/19 07/06/19 22:59 06:59 14:59 Intake Total 540 200 Output Total 600 300 Balance -60 -100 Lab Results Last 24 Hours: Laboratory Results - last 24 hr 07/06/19 Range/Units 04:55 PT 20.7 H (9.7-12.0) SECONDS INR 1.97 Med Orders - Current: Current Medications Haloperidol Lactate (Haldol) 0.5 mg IVPUSH ONETIME PRN PRN Reason: Anxiety Metoprolol Succinate (Toprol Xl) 100 mg PO DAILY [facility] Last Admin: 07/05/19 12:39 Dose: 100 mg Pantoprazole Sodium (Protonix) 40 mg PO DAILY [facility] Last Admin: 07/05/19 12:41 Dose: 40 mg Prednisone (Prednisone) 5 mg PO DAILY [facility] Last Admin: 07/05/19 12:41 Dose: 5 mg Tamsulosin HCl (Flomax) 0.4 mg PO DAILY [facility] Last Admin: 07/05/19 12:40 Dose: 0.4 mg Warfarin Sodium (Pharmacy To Dose - Warfarin) 1 dose PO ASDIRECTED PRN PRN Reason: RX TO DOSE Discontinued Medications Warfarin Sodium (Coumadin) 5 mg PO QPM [facility] Stop: 07/05/19 18:01 Last Admin: 07/05/19 17:24 Dose: 5 mg - Exam Quality Assessment: DVT Prophylaxis General: Alert, Cooperative, No Acute Distress HEENT: Pupils Equal, Pupils Reactive, Mucous Membr. Moist/[place] Neck: Supple, Trachea Midline Lungs: Clear to Auscultation, Normal Respiratory Effort Cardiovascular: Irregular Rhythm GI/Abdominal Exam: Normal Bowel Sounds, Soft, Non-Tender, No Distention (Male) Exam: Deferred Back Exam: Normal Inspection, Full Range of Motion Extremities: Normal Inspection, Normal Range of Motion, Non-Tender, No Pedal Edema, Normal Capillary Refill Peripheral Pulses: 2+: Radial (L), Radial (R), Dorsalis Pedis (L), Dorsalis Pedis (R) Skin: Warm, Dry, Intact Neurological: No New Focal Deficit Psy/Mental Status: Alert, Normal Affect, Normal Mood Sepsis Event Note - Evaluation Sepsis Screening Result: No Definite Risk - Focused Exam Vital Signs: Vital Signs Temp Pulse Resp BP Pulse Ox 07/06/19 03:24 98.4 F 115 H 20 155/80 H 97 07/05/19 23:35 98.2 F 102 H 22 H 143/93 H 94 L Date Exam was Performed: 07/06/19 Time Exam was Performed: 09:40 - Problem List & Annotations (1) Falls frequently SNOMED Code(s): 596968641 Code(s): R29.6 - REPEATED FALLS Status: Acute Priority: High Current Visit: Yes (2) Hospital admission due to social situation SNOMED Code(s): 811900547 Code(s): Z60.9 - PROBLEM RELATED TO SOCIAL ENVIRONMENT, UNSPECIFIED Status : Acute Priority: High Current Visit: Yes (3) Macular degeneration SNOMED Code(s): 243618982 Code(s): H35.30 - UNSPECIFIED MACULAR DEGENERATION Status: Chronic Priority: Low Current Visit: No Qualifiers: Macular degeneration type: unspecified type Eye laterality: unspecified Qualified Code(s): H35.30 - Unspecified macular degeneration (4) Afib SNOMED Code(s): 40912013 Code(s): I48.91 - UNSPECIFIED ATRIAL FIBRILLATION Status: Chronic Priority: Medium Current Visit: Yes Qualifiers: Atrial fibrillation type: unspecified Qualified Code(s): I48.91 - Unspecified atrial fibrillation (5) HLD (hyperlipidemia) SNOMED Code(s): 83537460 Code(s): E78.5 - HYPERLIPIDEMIA, UNSPECIFIED Status: Chronic Priority: Low Current Visit: No Qualifiers: Hyperlipidemia type: unspecified Qualified Code(s): E78.5 - Hyperlipidemia , unspecified (6) HTN (hypertension) SNOMED Code(s): 23857667 Code(s): I10 - ESSENTIAL (PRIMARY) HYPERTENSION Status: Chronic Priority : Medium Current Visit: No Qualifiers: Hypertension type: unspecified Qualified Code(s): I10 - Essential (primary ) hypertension (7) GERD (gastroesophageal reflux disease) SNOMED Code(s): 014621489 Code(s): K21.9 - GASTRO-ESOPHAGEAL REFLUX DISEASE WITHOUT ESOPHAGITIS Status: Chronic Priority: Low Current Visit: No Qualifiers: Esophagitis presence: esophagitis presence not specified Qualified Code(s) : K21.9 - Gastro-esophageal reflux disease without esophagitis (8) Hiatal hernia SNOMED Code(s): 08062705 Code(s): K44.9 - DIAPHRAGMATIC HERNIA WITHOUT OBSTRUCTION OR GANGRENE Status: Chronic Priority: Low Current Visit: No (9) Dysphagia SNOMED Code(s): 89491645, 721566117 Code(s): R13.10 - DYSPHAGIA, UNSPECIFIED Status: Chronic Priority: Medium Current Visit: Yes Qualifiers: Dysphagia type: unspecified Qualified Code(s): R13.10 - Dysphagia, unspecified (10) Prostate disease SNOMED Code(s): 93746276 Code(s): N42.9 - DISORDER OF PROSTATE, UNSPECIFIED Status: Chronic Priority: Low Current Visit: No (11) Urinary incontinence SNOMED Code(s): 450992849 Code(s): R32 - UNSPECIFIED URINARY INCONTINENCE Status: Chronic Priority : Low Current Visit: No Qualifiers: Urinary Incontinence type: unspecified incontinence Qualified Code(s): R32 - Unspecified urinary incontinence (12) Arthritis SNOMED Code(s): 8466337 Code(s): M19.90 - UNSPECIFIED OSTEOARTHRITIS, UNSPECIFIED SITE Status: Chronic Priority: Low Current Visit: No (13) Chronic back pain SNOMED Code(s): 634270022 Code(s): M54.9 - DORSALGIA, UNSPECIFIED; G89.29 - OTHER CHRONIC PAIN Status : Chronic Priority: Low Current Visit: No Qualifiers: Back pain location: back pain in unspecified location Back pain laterality : unspecified Qualified Code(s): M54.9 - Dorsalgia, unspecified; G89.29 - Other chronic pain (14) Polymyalgia SNOMED Code(s): 50604056 Code(s): M35.3 - POLYMYALGIA RHEUMATICA Status: Chronic Priority: Low Current Visit: No (15) Obesity SNOMED Code(s): 554743466, 461998055 Code(s): E66.9 - OBESITY, UNSPECIFIED Status: Chronic Priority: Low Current Visit: No Qualifiers: Obesity type: unspecified obesity type Obesity classification: adult class 1 (BMI 30 - 34.9) Serious obesity comorbidity presence: unspecified whether serious comorbidity present Body mass index: BMI 30.0-30.9 Qualified Code(s) : E66.9 - Obesity, unspecified; Z68.30 - Body mass index (BMI) 30.0-30.9, adult (16) Chronic anticoagulation SNOMED Code(s): 782275981 Code(s): Z79.01 - SPEAKER MOUNTER (CURRENT) USE OF ANTICOAGULANTS Status: Chronic Priority: Medium Current Visit: Yes (17) History of prostate cancer SNOMED Code(s): 462613995 Code(s): Z85.46 - PERSONAL HISTORY OF MALIGNANT NEOPLASM OF PROSTATE Status : Chronic Priority: Low Current Visit: No (18) Weakness SNOMED Code(s): 83983095 Code(s): R53.1 - WEAKNESS Status: Acute Priority: High Current Visit: Yes (19) Anticoagulated on Coumadin SNOMED Code(s): 17697977 Code(s): Z79.01 - SPEAKER MOUNTER (CURRENT) USE OF ANTICOAGULANTS Status: Chronic Priority: High Current Visit: Yes - Problem List Review Problem List Initiated/Reviewed/Updated: Yes - My Orders Last 24 Hours: My Active Orders 07/05/19 11:48 Consult to Case Management/Psychotherapist [CONS] Routine 07/05/19 12:00 Metoprolol Succinate [Toprol XL] 100 mg PO DAILY Pantoprazole [ProTONIX] 40 mg PO DAILY Tamsulosin [Flomax] 0.4 mg PO DAILY predniSONE 5 mg PO DAILY - Plan Plan:: Hospital admission due to social situation Falls frequently Chronic deconditioning Dysphagia Patient has been taking care of patient but is unable to fo it any further and other family members work which makes it impossible to take care of him at home Explained to them about 3 days requirement of acute care hospital stay prior to transfer Documented dysphagia on previous documentation Needs cane or walker but still needs more assistance at home, 2 assist PLAN - Let me sleep protocol - Case management and social sciences professor consult for discharge planning and assistant terminal manager placement - PT and OT consult for recommendations for placement - Dietary consult - Speech therapy consult Hypertension, uncontrolled Bp on admission 193/147 Home management with metoprolol PLAN - Continue metoprolol once PO - PRN labetalol Atrial fibrillation, CHADs VASc- 4 Anticoagulated on Coumadin Home management with metoprolol and Warfarin HR on admission 108x' INR on admission therapeutic, 2.15 PLAN - Goal INR 2-3 - Pharmacy to dose warfarin - PRN IV labetalol for HR > 110x' PROPHYLAXIS DVT- Warfarin GI- Not indicated CODE STATUS: FULL CODE DISPOSITION: Will be admitted for PT/OT evaluation and recommendations for placement as well as speech therapy evaluation for diet recommendations. Lives in [place] with Needs cane or walker but still needs more assistance at home.
[2019-07-06] MEDS: Metoprolol Succinate 50 MG Tab.ER PO SCH (08:04)
[2019-07-06] MEDS: predniSONE 5 MG Tab PO SCH (08:05)
[2019-07-06] MEDS: Pantoprazole 40 MG Tab.CR PO SCH (08:05)
[2019-07-06] MEDS: Tamsulosin 0.4 MG Cap.ER PO SCH (08:05)
[2019-07-06] MEDS ORDERED: Warfarin 5 MG Tab PO SCH (18:00)
[2019-07-07] MEDS: Metoprolol Succinate 50 MG Tab.ER PO SCH (08:03)
[2019-07-07] MEDS: Tamsulosin 0.4 MG Cap.ER PO SCH (08:04)
[2019-07-07] MEDS: Pantoprazole 40 MG Tab.CR PO SCH (08:04)
[2019-07-07] MEDS: predniSONE 5 MG Tab PO SCH (08:04)
--- NOTE | 2019-07-07 08:53 | PCM.PN ---
- General Info Date of Service: 07/07/19 Admission Dx/Problem (Free Text): Admission Diagnosis/Problem Admission Diagnosis/Problem Fall at home - Patient Data Vitals - Most Recent: Last Vital Signs Temp 98.1 F 07/07/19 05:49 Pulse 62 07/07/19 08:03 Resp 18 07/07/19 05:49 BP 142/106 H 07/07/19 08:03 Pulse Ox 93 L 07/07/19 05:49 Weight - Most Recent: 186 lb 11.2 oz I&O - Last 24 Hours: Intake & Output 07/06/19 07/07/19 07/07/19 22:59 06:59 14:59 Intake Total 440 100 Output Total 250 Balance 190 100 Lab Results Last 24 Hours: Laboratory Results - last 24 hr 07/07/19 07/07/19 07/07/19 Range/Units 05:35 05:35 05:35 WBC 9.16 H (4.23-9.07) K/mm3 RBC 4.71 (4.63-6.08) M/mm3 Hgb 13.3 L (13.7-17.5) gm/dl Hct 40.6 (40.1-51.0) % MCV 86.2 (79.0-92.2) fl MCH 28.2 (25.7-32.2) pg MCHC 32.8 (32.2-35.5) g/dl RDW Std Deviation 42.1 (35.1-43.9) fL Plt Count 238 (163-337) K/mm3 MPV 10.9 (9.4-12.3) fl Neut % (Auto) 60.5 (34.0-67.9) % Lymph % (Auto) 20.4 L (21.8-53.1) % [place] % (Auto) 16.8 H (5.3-12.2) % Eos % (Auto) 1.6 (0.8-7.0) Baso % (Auto) 0.4 (0.1-1.2) % Neut # (Auto) 5.53 H (1.78-5.38) K/mm3 Lymph # (Auto) 1.87 (1.32-3.57) K/mm3 [place] # (Auto) 1.54 H (0.30-0.82) K/mm3 Eos # (Auto) 0.15 (0.04-0.54) K/mm3 Baso # (Auto) 0.04 (0.01-0.08) K/mm3 Manual Slide Review Abnormal smear PT 21.0 H (9.7-12.0) SECONDS INR 2.00 Sodium 137 (136-145) mEq/L Potassium 3.9 (3.5-5.1) mEq/L Chloride 103 (98-107) mEq/L Carbon Dioxide 26 (21-32) mEq/L Anion Gap 11.9 (5-15) BUN 25 H (7-18) mg/dL Creatinine 0.9 (0.7-1.3) mg/dL Est Cr Clr Drug Dosing 57.00 mL/min Estimated GFR (MDRD) > 60 (>60) mL/min BUN/Creatinine Ratio 27.8 H (14-18) Glucose 100 (83-115) mg/dL Calcium 8.6 (8.5-10.1) mg/dL Magnesium 1.8 (1.8-2.4) mg/dl Med Orders - Current: Current Medications Haloperidol Lactate (Haldol) 0.5 mg IVPUSH ONETIME PRN PRN Reason: Anxiety Metoprolol Succinate (Toprol Xl) 100 mg PO DAILY [facility] Last Admin: 07/07/19 08:03 Dose: 100 mg Pantoprazole Sodium (Protonix) 40 mg PO DAILY [facility] Last Admin: 07/07/19 08:04 Dose: 40 mg Prednisone (Prednisone) 5 mg PO DAILY [facility] Last Admin: 07/07/19 08:04 Dose: 5 mg Tamsulosin HCl (Flomax) 0.4 mg PO DAILY [facility] Last Admin: 07/07/19 08:04 Dose: 0.4 mg Warfarin Sodium (Pharmacy To Dose - Warfarin) 1 dose PO ASDIRECTED PRN PRN Reason: RX TO DOSE Warfarin Sodium (Coumadin) 5 mg PO QPM [facility] Stop: 07/07/19 18:01 Discontinued Medications Warfarin Sodium (Coumadin) 5 mg PO QPM [facility] Stop: 07/05/19 18:01 Last Admin: 07/05/19 17:24 Dose: 5 mg Warfarin Sodium (Coumadin) 5 mg PO QPM [facility] Stop: 07/06/19 18:01 Last Admin: 07/06/19 17:59 Dose: 5 mg Sepsis Event Note - Evaluation Sepsis Screening Result: No Definite Risk - Focused Exam Vital Signs: Vital Signs Temp Pulse Resp BP Pulse Ox 07/07/19 08:03 62 142/106 H 07/07/19 05:49 98.1 F 108 H 18 134/80 93 L 07/06/19 22:02 98.1 F 114 H 18 131/96 H 94 L Date Exam was Performed: 07/07/19 Time Exam was Performed: 08:53 - Problem List & Annotations (1) Falls frequently SNOMED Code(s): 840113996 Code(s): R29.6 - REPEATED FALLS Status: Acute Priority: High Current Visit: Yes (2) Hospital admission due to social situation SNOMED Code(s): 874583913 Code(s): Z60.9 - PROBLEM RELATED TO SOCIAL ENVIRONMENT, UNSPECIFIED Status : Acute Priority: High Current Visit: Yes (3) Macular degeneration SNOMED Code(s): 670007431 Code(s): H35.30 - UNSPECIFIED MACULAR DEGENERATION Status: Chronic Priority: Low Current Visit: No Qualifiers: Macular degeneration type: unspecified type Eye laterality: unspecified Qualified Code(s): H35.30 - Unspecified macular degeneration (4) Afib SNOMED Code(s): 43427795 Code(s): I48.91 - UNSPECIFIED ATRIAL FIBRILLATION Status: Chronic Priority: Medium Current Visit: Yes Qualifiers: Atrial fibrillation type: unspecified Qualified Code(s): I48.91 - Unspecified atrial fibrillation (5) HLD (hyperlipidemia) SNOMED Code(s): 94690120 Code(s): E78.5 - HYPERLIPIDEMIA, UNSPECIFIED Status: Chronic Priority: Low Current Visit: No Qualifiers: Hyperlipidemia type: unspecified Qualified Code(s): E78.5 - Hyperlipidemia , unspecified (6) HTN (hypertension) SNOMED Code(s): 08675311 Code(s): I10 - ESSENTIAL (PRIMARY) HYPERTENSION Status: Chronic Priority : Medium Current Visit: No Qualifiers: Hypertension type: unspecified Qualified Code(s): I10 - Essential (primary ) hypertension (7) GERD (gastroesophageal reflux disease) SNOMED Code(s): 105589558 Code(s): K21.9 - GASTRO-ESOPHAGEAL REFLUX DISEASE WITHOUT ESOPHAGITIS Status: Chronic Priority: Low Current Visit: No Qualifiers: Esophagitis presence: esophagitis presence not specified Qualified Code(s) : K21.9 - Gastro-esophageal reflux disease without esophagitis (8) Hiatal hernia SNOMED Code(s): 86856149 Code(s): K44.9 - DIAPHRAGMATIC HERNIA WITHOUT OBSTRUCTION OR GANGRENE Status: Chronic Priority: Low Current Visit: No (9) Dysphagia SNOMED Code(s): 13272103, 362195077 Code(s): R13.10 - DYSPHAGIA, UNSPECIFIED Status: Chronic Priority: Medium Current Visit: Yes Qualifiers: Dysphagia type: unspecified Qualified Code(s): R13.10 - Dysphagia, unspecified (10) Prostate disease SNOMED Code(s): 92974710 Code(s): N42.9 - DISORDER OF PROSTATE, UNSPECIFIED Status: Chronic Priority: Low Current Visit: No (11) Urinary incontinence SNOMED Code(s): 151546843 Code(s): R32 - UNSPECIFIED URINARY INCONTINENCE Status: Chronic Priority : Low Current Visit: No Qualifiers: Urinary Incontinence type: unspecified incontinence Qualified Code(s): R32 - Unspecified urinary incontinence (12) Arthritis SNOMED Code(s): 5801239 Code(s): M19.90 - UNSPECIFIED OSTEOARTHRITIS, UNSPECIFIED SITE Status: Chronic Priority: Low Current Visit: No (13) Chronic back pain SNOMED Code(s): 896976427 Code(s): M54.9 - DORSALGIA, UNSPECIFIED; G89.29 - OTHER CHRONIC PAIN Status : Chronic Priority: Low Current Visit: No Qualifiers: Back pain location: back pain in unspecified location Back pain laterality : unspecified Qualified Code(s): M54.9 - Dorsalgia, unspecified; G89.29 - Other chronic pain (14) Polymyalgia SNOMED Code(s): 44192180 Code(s): M35.3 - POLYMYALGIA RHEUMATICA Status: Chronic Priority: Low Current Visit: No (15) Obesity SNOMED Code(s): 665764392, 360081160 Code(s): E66.9 - OBESITY, UNSPECIFIED Status: Chronic Priority: Low Current Visit: No Qualifiers: Obesity type: unspecified obesity type Obesity classification: adult class 1 (BMI 30 - 34.9) Serious obesity comorbidity presence: unspecified whether serious comorbidity present Body mass index: BMI 30.0-30.9 Qualified Code(s) : E66.9 - Obesity, unspecified; Z68.30 - Body mass index (BMI) 30.0-30.9, adult (16) Chronic anticoagulation SNOMED Code(s): 399850973 Code(s): Z79.01 - CANDY COOKER HELPER (CURRENT) USE OF ANTICOAGULANTS Status: Chronic Priority: Medium Current Visit: Yes (17) History of prostate cancer SNOMED Code(s): 846342826 Code(s): Z85.46 - PERSONAL HISTORY OF MALIGNANT NEOPLASM OF PROSTATE Status : Chronic Priority: Low Current Visit: No (18) Weakness SNOMED Code(s): 47232779 Code(s): R53.1 - WEAKNESS Status: Acute Priority: High Current Visit: Yes (19) Anticoagulated on Coumadin SNOMED Code(s): 99081735 Code(s): Z79.01 - [facility] (CURRENT) USE OF ANTICOAGULANTS Status: Chronic Priority: High Current Visit: Yes - Problem List Review Problem List Initiated/Reviewed/Updated: Yes - Plan Plan:: Hospital admission due to social situation Falls frequently Chronic deconditioning Dysphagia Patient has been taking care of patient but is unable to fo it any further and other family members work which makes it impossible to take care of him at home Explained to them about 3 days requirement of acute care hospital stay prior to transfer Documented dysphagia on previous documentation Needs cane or walker but still needs more assistance at home, 2 assist PLAN - Let me sleep protocol - Case management and social director consult for discharge planning and senior living placement - PT and OT consult for recommendations for placement - Dietary consult - Speech therapy consult Hypertension, uncontrolled Bp on admission 193/147 Home management with metoprolol PLAN - Continue metoprolol once PO - PRN labetalol Atrial fibrillation, CHADs VASc- 4 Anticoagulated on Coumadin Home management with metoprolol and Warfarin HR on admission 108x' INR on admission therapeutic, 2.15 PLAN - Goal INR 2-3 - Pharmacy to dose warfarin - PRN IV labetalol for HR > 110x' PROPHYLAXIS DVT- Warfarin GI- Not indicated CODE STATUS: FULL CODE DISPOSITION: Will be admitted for PT/OT evaluation and recommendations for placement as well as speech therapy evaluation for diet recommendations. Lives in [place] with Needs cane or walker but still needs more assistance at home. LOS >96 Hrs pending placement
--- NOTE | 2019-07-07 11:17 | PCM.DCSUM1 ---
Discharge Summary - Hospital Course HPI Initial Comments: This is an 84-year-old male with past medical history of atrial fibrillation and dementia who is brought to the ED by for worsening weakness. Patient too confused to answer questions for which history and information was obtained by chart review and . As per the patient has been becoming increasingly weak accompanied with falls, including 2 falls this past weekend. Head trauma is unclear. She does note he has been more confused lately with intermittent abdominal pain but no nausea, vomiting, diarrhea or constipation. Diagnosis: Stroke: No - Discharge Data Discharge Date: 07/07/19 (Admit date: 07/04/19) Discharge Disposition: DC/Tfer to SNF 03 Condition: Good - Referral to Home Health Primary Care Physician: Jason Peters MD - Discharge Diagnosis/Problem(s) (1) Falls frequently SNOMED Code(s): 039839230 ICD Code: R29.6 - REPEATED FALLS Status: Acute Priority: High Current Visit: Yes (2) Hospital admission due to social situation SNOMED Code(s): 950145727 ICD Code: Z60.9 - PROBLEM RELATED TO SOCIAL ENVIRONMENT, UNSPECIFIED Status : Acute Priority: High Current Visit: Yes (3) Macular degeneration SNOMED Code(s): 821514432 ICD Code: H35.30 - UNSPECIFIED MACULAR DEGENERATION Status: Chronic Priority: Low Current Visit: No Qualifiers: Macular degeneration type: unspecified type Eye laterality: unspecified Qualified Code(s): H35.30 - Unspecified macular degeneration (4) Afib SNOMED Code(s): 86158446 ICD Code: I48.91 - UNSPECIFIED ATRIAL FIBRILLATION Status: Chronic Priority: Medium Current Visit: Yes Qualifiers: Atrial fibrillation type: unspecified Qualified Code(s): I48.91 - Unspecified atrial fibrillation (5) HLD (hyperlipidemia) SNOMED Code(s): 32806765 ICD Code: E78.5 - HYPERLIPIDEMIA, UNSPECIFIED Status: Chronic Priority: Low Current Visit: No Qualifiers: Hyperlipidemia type: unspecified Qualified Code(s): E78.5 - Hyperlipidemia , unspecified (6) HTN (hypertension) SNOMED Code(s): 29416279 ICD Code: I10 - ESSENTIAL (PRIMARY) HYPERTENSION Status: Chronic Priority : Medium Current Visit: No Qualifiers: Hypertension type: unspecified Qualified Code(s): I10 - Essential (primary ) hypertension (7) GERD (gastroesophageal reflux disease) SNOMED Code(s): 706655109 ICD Code: K21.9 - GASTRO-ESOPHAGEAL REFLUX DISEASE WITHOUT ESOPHAGITIS Status: Chronic Priority: Low Current Visit: No Qualifiers: Esophagitis presence: esophagitis presence not specified Qualified Code(s) : K21.9 - Gastro-esophageal reflux disease without esophagitis (8) Hiatal hernia SNOMED Code(s): 31151528 ICD Code: K44.9 - DIAPHRAGMATIC HERNIA WITHOUT OBSTRUCTION OR GANGRENE Status: Chronic Priority: Low Current Visit: No (9) Dysphagia SNOMED Code(s): 23838794, 466113484 ICD Code: R13.10 - DYSPHAGIA, UNSPECIFIED Status: Chronic Priority: Medium Current Visit: Yes Qualifiers: Dysphagia type: unspecified Qualified Code(s): R13.10 - Dysphagia, unspecified (10) Prostate disease SNOMED Code(s): 62083347 ICD Code: N42.9 - DISORDER OF PROSTATE, UNSPECIFIED Status: Chronic Priority: Low Current Visit: No (11) Urinary incontinence SNOMED Code(s): 356805871 ICD Code: R32 - UNSPECIFIED URINARY INCONTINENCE Status: Chronic Priority : Low Current Visit: No Qualifiers: Urinary Incontinence type: unspecified incontinence Qualified Code(s): R32 - Unspecified urinary incontinence (12) Arthritis SNOMED Code(s): 0412965 ICD Code: M19.90 - UNSPECIFIED OSTEOARTHRITIS, UNSPECIFIED SITE Status: Chronic Priority: Low Current Visit: No (13) Chronic back pain SNOMED Code(s): 233079547 ICD Code: M54.9 - DORSALGIA, UNSPECIFIED; G89.29 - OTHER CHRONIC PAIN Status: Chronic Priority: Low Current Visit: No Qualifiers: Back pain location: back pain in unspecified location Back pain laterality : unspecified Qualified Code(s): M54.9 - Dorsalgia, unspecified; G89.29 - Other chronic pain (14) Polymyalgia SNOMED Code(s): 57650020 ICD Code: M35.3 - POLYMYALGIA RHEUMATICA Status: Chronic Priority: Low Current Visit: No (15) Obesity SNOMED Code(s): 438249377, 901561285 ICD Code: E66.9 - OBESITY, UNSPECIFIED Status: Chronic Priority: Low Current Visit: No Qualifiers: Obesity type: unspecified obesity type Obesity classification: adult class 1 (BMI 30 - 34.9) Serious obesity comorbidity presence: unspecified whether serious comorbidity present Body mass index: BMI 30.0-30.9 Qualified Code(s) : E66.9 - Obesity, unspecified; Z68.30 - Body mass index (BMI) 30.0-30.9, adult (16) Chronic anticoagulation SNOMED Code(s): 946826409 ICD Code: Z79.01 - RESIDENTIAL (CURRENT) USE OF ANTICOAGULANTS Status: Chronic Priority: Medium Current Visit: Yes (17) History of prostate cancer SNOMED Code(s): 037646486 ICD Code: Z85.46 - PERSONAL HISTORY OF MALIGNANT NEOPLASM OF PROSTATE Status: Chronic Priority: Low Current Visit: No (18) Weakness SNOMED Code(s): 75374580 ICD Code: R53.1 - WEAKNESS Status: Acute Priority: High Current Visit: Yes (19) Anticoagulated on Coumadin SNOMED Code(s): 20788547 ICD Code: Z79.01 - [facility] SPECIALIST (CURRENT) USE OF ANTICOAGULANTS Status: Chronic Priority: High Current Visit: Yes - Patient Summary/Data Consults: Consultations 07/05/19 07:37 Consult to Occupational Therapy [OT Evaluation and Treatment] [CONS] Routine Consult to Physical Therapy [PT Evaluation and Treatment] [CONS] Routine 07/05/19 11:48 Consult to Case Management/Lube Attendant [CONS] Routine 07/06/19 07:45 Consult to Speech Language Pathology [MEAT CLERK Evaluation and Treatment] [CONS] Routine 07/06/19 07:46 Consult to Senior Net C Developer [CONS] Routine Labs Pending at D/C: None Recommended Follow-up Testing/Procedures: Follow-up with PCP as scheduled. Re-check INR on 07/11/19 with results to PCP, Dr. Peters. Hospital Course: Elda Weinstein was admitted to the hospital floor due to worsening weakness and confusion. reports that he had had multiple falls at home and she has been having difficulty caring for him. On the floors infectious work-up was negative. His INR remained steady on his home dosing of Coumadin. Home medications were continued. He did work with physical therapy and Occupational Therapy who are recommending SNF placement. He does have a history of dysphasia and speech-language did evaluate him. They found him appropriate for regular diet and thin liquids. Of note, nursing did note some difficulty when the patient was taking his pills with water. He did do better when his pills were placed in pudding. He did display some baseline confusion however he was able to carry on a conversation and did respond to most questions appropriately. He was ultimately accepted at [facility] in [place]. All home medications were continued at discharge. He should continue PT/OT while there. Order was placed for repeat INR on 07/11/2019 with results to PCP, Dr. Peters. He was instructed to follow-up with his primary care provider within 7 to 10 days of discharge. - Patient Instructions Diet: Heart Healthy Diet Activity: As Tolerated Driving: Do Not Drive Showering/Bathing: May Shower Notify Provider of: Fever, Increased Pain, Nausea and/or Vomiting Other/Special Instructions: Follow-up with primary care provider within 7-10 days of discharge. Resume home medications as directed. Continue PT/OT at SNF. Give medications in pudding. Recheck INR Thursday07/11/19 with results to PCP, Dr. Peters. Should symptoms return or worsen, contact primary care provider or return to the Emergency Department - Discharge Plan *PRESCRIPTION DRUG MONITORING PROGRAM REVIEWED*: No *COPY OF PRESCRIPTION DRUG MONITORING REPORT IN PATIENT CHAR: No Home Medications: Home Meds Omeprazole 20 mg PO DAILY 01/26/17 [History] Warfarin Sodium [Coumadin] 5 mg PO SUTUWETHSA 03/27/19 [History] predniSONE [Prednisone] 5 mg PO DAILY 04/01/19 [History] Tamsulosin HCl [Flomax] 0.4 mg PO DAILY 07/04/19 [History] Metoprolol Succinate 100 mg PO DAILY 07/05/19 [History] Warfarin [Coumadin] 2.5 mg PO MOFR 07/05/19 [History] Oxygen Therapy Mode: Room Air Forms: ED Department Discharge Referrals: Jason Peters MD [Primary Care Provider] - 07/19/19 9:30 am (please attend the scheduled follow up appointment with Dr. Peters as listed.) - Discharge Summary/Plan Comment DC Time >30 min.: Yes (45 mins ) - General Info Date of Service: 07/07/19 Functional Status: Reports: Pain Controlled, Tolerating Diet, Ambulating, Urinating. Denies: New Symptoms - Review of Systems General: Reports: Weakness. Denies: Fever, Fatigue, Malaise, Chills HEENT: Reports: No Symptoms. Denies: Headaches, Sore Throat Pulmonary: Reports: No Symptoms. Denies: Shortness of Breath, Pleuritic Chest Pain, Cough, Sputum, Wheezing Cardiovascular: Reports: No Symptoms. Denies: Chest Pain, Palpitations, Dyspnea on Exertion Gastrointestinal: Reports: No Symptoms. Denies: Abdominal Pain, Constipation, Diarrhea, Nausea, Vomiting Genitourinary: Reports: No Symptoms. Denies: Pain Musculoskeletal: Reports: No Symptoms Skin: Reports: No Symptoms. Denies: Cyanosis Neurological: Reports: Confusion (baseline ), Difficulty Walking, Weakness, Gait Disturbance Psychiatric: Reports: No Symptoms - Patient Data Vitals - Most Recent: Last Vital Signs Temp 99.0 F 07/07/19 07:58 Pulse 62 07/07/19 08:03 Resp 16 07/07/19 07:58 BP 142/106 H 07/07/19 08:03 Pulse Ox 99 07/07/19 07:58 Weight - Most Recent: 186 lb 11.2 oz I&O - Last 24 hours: Intake & Output 07/06/19 07/07/19 07/07/19 22:59 06:59 14:59 Intake Total 440 100 90 Output Total 250 Balance 190 100 90 Lab Results - Last 24 hrs: Laboratory Results - last 24 hr 07/07/19 07/07/19 07/07/19 Range/Units 05:35 05:35 05:35 WBC 9.16 H (4.23-9.07) K/mm3 RBC 4.71 (4.63-6.08) M/mm3 Hgb 13.3 L (13.7-17.5) gm/dl Hct 40.6 (40.1-51.0) % MCV 86.2 (79.0-92.2) fl MCH 28.2 (25.7-32.2) pg MCHC 32.8 (32.2-35.5) g/dl RDW Std Deviation 42.1 (35.1-43.9) fL Plt Count 238 (163-337) K/mm3 MPV 10.9 (9.4-12.3) fl Neut % (Auto) 60.5 (34.0-67.9) % Lymph % (Auto) 20.4 L (21.8-53.1) % Creek % (Auto) 16.8 H (5.3-12.2) % Eos % (Auto) 1.6 (0.8-7.0) Baso % (Auto) 0.4 (0.1-1.2) % Neut # (Auto) 5.53 H (1.78-5.38) K/mm3 Lymph # (Auto) 1.87 (1.32-3.57) K/mm3 Creek # (Auto) 1.54 H (0.30-0.82) K/mm3 Eos # (Auto) 0.15 (0.04-0.54) K/mm3 Baso # (Auto) 0.04 (0.01-0.08) K/mm3 Manual Slide Review Abnormal smear PT 21.0 H (9.7-12.0) SECONDS INR 2.00 Sodium 137 (136-145) mEq/L Potassium 3.9 (3.5-5.1) mEq/L Chloride 103 (98-107) mEq/L Carbon Dioxide 26 (21-32) mEq/L Anion Gap 11.9 (5-15) BUN 25 H (7-18) mg/dL Creatinine 0.9 (0.7-1.3) mg/dL Est Cr Clr Drug Dosing 57.00 mL/min Estimated GFR (MDRD) > 60 (>60) mL/min BUN/Creatinine Ratio 27.8 H (14-18) Glucose 100 (83-115) mg/dL Calcium 8.6 (8.5-10.1) mg/dL Magnesium 1.8 (1.8-2.4) mg/dl Med Orders - Current: Current Medications Haloperidol Lactate (Haldol) 0.5 mg IVPUSH ONETIME PRN PRN Reason: Anxiety Metoprolol Succinate (Toprol Xl) 100 mg PO DAILY [facility] Last Admin: 07/07/19 08:03 Dose: 100 mg Pantoprazole Sodium (Protonix) 40 mg PO DAILY [facility] Last Admin: 07/07/19 08:04 Dose: 40 mg Prednisone (Prednisone) 5 mg PO DAILY [facility] Last Admin: 07/07/19 08:04 Dose: 5 mg Tamsulosin HCl (Flomax) 0.4 mg PO DAILY [facility] Last Admin: 07/07/19 08:04 Dose: 0.4 mg Warfarin Sodium (Pharmacy To Dose - Warfarin) 1 dose PO ASDIRECTED PRN PRN Reason: RX TO DOSE Warfarin Sodium (Coumadin) 5 mg PO QPM [facility] Stop: 07/07/19 18:01 Discontinued Medications Warfarin Sodium (Coumadin) 5 mg PO QPM [facility] Stop: 07/05/19 18:01 Last Admin: 07/05/19 17:24 Dose: 5 mg Warfarin Sodium (Coumadin) 5 mg PO QPM [facility] Stop: 07/06/19 18:01 Last Admin: 07/06/19 17:59 Dose: 5 mg - Exam Quality Assessment: Reports: DVT Prophylaxis. Denies: Supplemental Oxygen General: Reports: Alert, Cooperative, No Acute Distress HEENT: Reports: Pupils Equal, Pupils Reactive, Mucous Membr. Moist/[place] Neck: Reports: Supple, Trachea Midline Lungs: Reports: Clear to Auscultation, Normal Respiratory Effort Cardiovascular: Reports: Irregular Rhythm GI/Abdominal Exam: Normal Bowel Sounds, Soft, Non-Tender, No Distention (Male) Exam: Deferred Rectal (Males) Exam: Deferred Back Exam: Reports: Normal Inspection, Decreased Range of Motion Extremities: Normal Inspection, Normal Range of Motion, Non-Tender, No Pedal Edema, Normal Capillary Refill Skin: Reports: Warm, Dry, Intact Neurological: Reports: No New Focal Deficit Psy/Mental Status: Reports: Alert, Normal Affect, Normal Mood
[2019-07-07 14:42] VITALS: BP 130/88; PULSE 92
[2019-07-07] MEDS ORDERED: Warfarin 5 MG Tab PO SCH (18:00)
== END 2019-07-07 13:12 | DRG 948 ==
LOC: JD.ED 11:02 → JD.MS 16:54
PROVIDERS: ADMIT Internal Medicine; ATTEND Internal Medicine
DX: R53.1 Weakness (principal); H54.7 Unspecified visual loss; E86.0 Dehydration; H35.30 Unspecified macular degeneration; I48.91 Unspecified atrial fibrillation; I10 Essential (primary) hypertension; E78.00 Pure hypercholesterolemia, unspecified; K21.9 Gastro-esophageal reflux disease without esophagitis; M19.90 Unspecified osteoarthritis, unspecified site; K44.9 Diaphragmatic hernia without obstruction or gangrene; C61 Malignant neoplasm of prostate; F32.9 Major depressive disorder, single episode, unspecified; R41.0 Disorientation, unspecified; R47.02 Dysphasia; R29.6 Repeated falls; M54.9 Dorsalgia, unspecified; G89.29 Other chronic pain; R13.10 Dysphagia, unspecified; Z79.52 Long term (current) use of systemic steroids; E66.9 Obesity, unspecified; E78.5 Hyperlipidemia, unspecified; R62.7 Adult failure to thrive; M35.3 Polymyalgia rheumatica; F03.90 Unspecified dementia, unspecified severity, without behavioral disturbance, psychotic disturbance, mood disturbance, and anxiety; Z60.9 Problem related to social environment, unspecified; Z79.01 Long term (current) use of anticoagulants; Z68.30 Body mass index [BMI] 30.0-30.9, adult; Z79.899 Other long term (current) drug therapy; Z85.46 Personal history of malignant neoplasm of prostate; Z90.49 Acquired absence of other specified parts of digestive tract
CPT/HCPCS: 36415; 51798; 70450; 70450-26; 71046; 71046-26; 80048; 80053; 80306; 80307; 81001; 83735; 83880; 84443; 84484; 85025; 85610; 92610-GN; 93005; 93010; 97110-GP; 97116-GP; 97161-GP; 97165-GO; 97535-GO; 99285; 99285-25; A9270-GY

== ENCOUNTER 2021-10-19 11:49 | Emergency (ER) | payer MEDICARE, BC ==
[2021-10-19] MEDS ORDERED: Sodium Chloride 0.9% 10 ML Syringe FLUSH PRN (11:53)
[2021-10-19] MEDS ORDERED: Sodium Chloride 0.9% 1,000 ML IV SCH (12:00)
[2021-10-19 12:42] LABS: ESTIMATED GFR 52 mL/min (>60)
[2021-10-19] MEDS ORDERED: cefTRIAXone 2 GM in Sodium Chloride 0.9% 100 ML IV ONE (14:38)
[2021-10-19 16:36] VITALS: BP 129/84; PULSE 95
== END 2021-10-19 16:55 ==
LOC: JD.ED 11:49
DX: N30.00 Acute cystitis without hematuria (principal); I48.91 Unspecified atrial fibrillation; E78.00 Pure hypercholesterolemia, unspecified; I10 Essential (primary) hypertension; K21.9 Gastro-esophageal reflux disease without esophagitis; E66.9 Obesity, unspecified; Z68.30 Body mass index [BMI] 30.0-30.9, adult; Z79.899 Other long term (current) drug therapy; Z79.01 Long term (current) use of anticoagulants; Z20.822 Contact with and (suspected) exposure to COVID-19
CPT/HCPCS: 36415; 70450; 80053; 81001; 83605; 83735; 83880; 84484; 85025; 85610; 85730; 86140; 87040; 87086; 87088; 87186; 93005; 96361; 96365; 99285; J0696; J3490; J7030; U0002

== ENCOUNTER 2023-01-02 17:17 | Emergency (ER) | payer MEDICARE, BC ==
[2023-01-02] MEDS ORDERED: Lidocaine 1% with EPINEPHrine 1:100,000 10 ML MDV INJECT ONE (17:25)
[2023-01-02] MEDS ORDERED: Lidocaine 2% with EPINEPHrine 1:200,000 20 ML SDV ONE (19:02)
[2023-01-02] MEDS ORDERED: Lidocaine 2% with EPINEPHrine 1:100,000 20 ML MDV INJECT ONE (19:04)
[2023-01-02 21:27] VITALS: BP 148/74; PULSE 93
== END 2023-01-02 21:09 | disposition home or self-care (01) ==
LOC: JD.ED 17:17
DX: S01.81XA Laceration without foreign body of other part of head, initial encounter (principal); I48.91 Unspecified atrial fibrillation; I11.0 Hypertensive heart disease with heart failure; I50.9 Heart failure, unspecified; Z79.01 Long term (current) use of anticoagulants; W19.XXXA Unspecified fall, initial encounter; W22.8XXA Striking against or struck by other objects, initial encounter
CPT/HCPCS: 12013; 70450; 70450-26; 99283; J3490